=== PATIENT | female | born 2000 | race Caucasian/White ===

== ENCOUNTER 2022-09-25 09:40 | Emergency (ER) | payer OTHER, SELFPAY ==
[2022-09-25 09:51] VITALS: BP 144/84; PULSE 80; RESP 18; TEMP 36.9; O2SAT 99; BMI 24.2
--- NOTE | 2022-09-25 09:56 | ECG_ITS ---
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
--- NOTE | 2022-09-25 10:22 | ED_ITS ---
HPI - Back Pain/Injury General Chief Complaint: Back Pain/Injury Stated Complaint: NAUSEA/WEAKNESS/SEVERE PAIN IN LOWER BACK R SIDE Time Seen by Provider: 09/25/22 09:55 Source: patient Mode of arrival: walk-in History of Present Illness HPI Narrative: The patient is coming to the ER today with multiple complaints most of them were more than a week ago except for the left lower quadrant pain that was there for a few min before arrival and resolved The patient noted the pain in her left leg when she was getting out of the car , that resolved The patient mentioned the other chronic issues including the right lower back pain not radiating associated with no numbness tingling or weakness the pain has been going on for at least a week The patient had not visited her primary care doctor for a while and she denies any difficulty breathing at the moment also denies any chest pain nausea or vomiting at the moment Related Data Previous Rx's Medication Instructions Recorded diclofenac sodium 50 mg 50 mg PO Q12H PRN pain #10 tabs 09/25/22 tablet,delayed release Allergies Allergy/AdvReac Type Severity Reaction Status Date / Time No Known Drug Allergies Allergy Verified 09/25/22 09:49 Review of Systems ROS Status of ROS 10 or more systems reviewed and unremarkable except as noted in history and below Exam Narrative Exam Narrative: Nurses notes and vital signs reviewed and patient is not hypoxic. General: Well-appearing and in no apparent distress. Skin: Warm, dry, no pallor noted. No rash. Head: Normocephalic, atraumatic. Neck: Supple, non-tender. Eye: Pupils are equal, round and EOMI. No scleral icterus. Ears, Nose, Mouth, and Throat: TM are clear, no nasal mucosal hypertrophy. Oral mucosa is moist, no posterior oropharynx erythema, uvula is mid-line Cardiovascular: Regular Rate and Rhythm without murmur, gallop or rub. Respiratory: No accessory muscle use or respiratory distress. Lungs are clear to auscultation, no wheezing, rales or rhonchi Chest Wall: no tenderness Back: No midline thoracic or lumbar vertebral tenderness. No CVA tenderness there is a mild right paraspinal muscle tenderness that is subjective no ecchymosis Musculoskeletal: normal ROM, no calf or popliteal tenderness, no lower extremity edema/swelling GI: Abdomen is soft, non-distended. Normal bowel sounds. No masses appreciated. No tenderness to palpation. No rebound, guarding, or rigidity noted. Neurological: A&O x4. No cranial nerve dysfunction observed. No truncal ataxia. Moves all extremities. Sensation intact. Psychiatric: Cooperative and interactive. Normal mood and affect. Constitutional Vital Signs, click to edit/add: Last Vital Signs Temp 98.5 F 09/25/22 09:51 Pulse 80 09/25/22 09:51 Resp 18 09/25/22 09:51 BP 144/84 H 09/25/22 09:51 Pulse Ox 99 09/25/22 09:51 O2 Del Method Room Air 09/25/22 09:51 Course Vital Signs Vital signs: Vital Signs Temperature 98.5 F 09/25/22 09:51 Pulse Rate 80 09/25/22 09:51 Respiratory Rate 18 09/25/22 09:51 Blood Pressure 144/84 H 09/25/22 09:51 Pulse Oximetry 99 09/25/22 09:51 Oxygen Delivery Method Room Air 09/25/22 09:51 Temperature 98.5 F 09/25/22 09:51 Pulse Rate 80 09/25/22 09:51 Respiratory Rate 18 09/25/22 09:51 Blood Pressure 144/84 H 09/25/22 09:51 Pulse Oximetry 99 09/25/22 09:51 Oxygen Delivery Method Room Air 09/25/22 09:51 MDM - Back Pain/Injury MDM Narrative Medical decision making narrative: EKG showing sinus rhythm with a heart rate of [address] elevation or depression CBC and chemistry shows no acute pathology and the patient test was negative Urinalysis showed some bacteria but the patient does not have any urinary symptoms and her presentation is mostly secondary to musculoskeletal pain Right now the patient was treated in the ER with Toradol discharged home with Brijesh instructed that she needs a primary care doctor for follow-up The patient is to follow up with primary care physician in next 2-3 days or to return to the emergency department should any of the signs or symptoms worsen or new symptoms develop. The patient agrees with the following Diagnosis and Treatment plan and the patient will be discharged home. Lab Data Labs: Lab Results 09/25/22 09/25/22 Range/Units 10:00 10:10 WBC 7.7 (4.0-11.0) 10^3/uL RBC 4.35 (4.20-5.40) 10^6/uL Hgb 13.5 (12.0-16.0) g/dL Hct 39.4 (36.0-48.0) % MCV 90.6 (81.0-99.0) fL MCH 31.0 (26.7-34.0) pg MCHC 34.3 (29.9-35.2) g/dL RDW 12.1 (11.0-15.0) % Plt Count 330 (150-450) 10^3/uL MPV 9.9 (9.5-13.5) fL Neut % (Auto) 63.5 (43.0-75.0) % Lymph % (Auto) 24.4 (20.5-60.0) % Bureau % (Auto) 10.2 (1.7-12.0) % Eos % (Auto) 1.2 (0.9-7.0) % Baso % (Auto) 0.4 (0.2-2.0) % Neut # (Auto) 4.9 (1.4-6.5) 10^3/uL Lymph # (Auto) 1.9 (1.2-3.8) 10^3/uL Bureau # (Auto) 0.8 (0.3-0.8) 10^3/uL Eos # (Auto) 0.1 (0.0-0.7) 10^3/uL Baso # (Auto) 0.0 (0.0-0.1) 10^3/uL Abs Immat Gran (auto) 0.02 (0.00-0.03) 10^3/uL Imm/Tot Granulo (auto) 0.3 (0.0-0.5) % Sodium 137 (136-145) mmol/L Potassium 4.0 (3.5-5.1) mmol/L Chloride 104 (98-107) mmol/L Carbon Dioxide 26.6 (21.0-32.0) mmol/L Anion Gap 10.4 BUN 11.0 (7.0-18.0) mg/dL Creatinine 0.70 (0.55-1.02) mg/dL Est GFR ( Amer) >60 (>=60) Est GFR (Non-Af Amer) >60 (>=60) BUN/Creatinine Ratio 15.7 Glucose 90 (74-106) mg/dL Calcium 9.4 (8.5-10.1) mg/dL Total Bilirubin 0.5 (0.2-1.0) mg/dL AST 13 L (15-37) U/L ALT 19 (14-59) U/L Alkaline Phosphatase 55 (46-116) U/L Troponin I High Sens 5.5 (4.0-51.3) pg/mL Total Protein 7.5 (6.4-8.2) g/dL Albumin 4.1 (3.4-5.0) g/dL Globulin 3.4 g/dL Albumin/Globulin Ratio 1.2 Urine Color Yellow (YELLOW) Urine Clarity Clear (CLEAR) Urine pH 6.5 (5.0-9.0) Ur Specific [place] 1.015 (1.005-1.025) Urine Protein Negative (NEG/TRACE) mg/dL Urine Glucose (UA) Negative (NEGATIVE) mg/dL Urine Ketones Negative (NEGATIVE) mg/dL Urine Occult Blood Negative (NEGATIVE) Urine Nitrite Negative (NEGATIVE) Urine Bilirubin Negative (NEGATIVE) Urine Urobilinogen 1.0 (0.2-1.0) EU/dL Ur Leukocyte Esterase Small A (NEGATIVE) Urine RBC None seen (0-2) #/HPF Urine WBC 2-5 A (NONE SEEN) #/HPF Ur Squamous Epith Cells Many A (NONE/RARE) #/LPF Urine Bacteria Moderate A (NONE SEEN) #/HPF Urine Mucus None seen (NONE SEEN) Ur Culture Indicated? Yes Discharge Plan Discharge Chief Complaint: Back Pain/Injury Clinical Impression: Back pain Patient Disposition: Home, Self-Care Time of Disposition Decision: 11:42 Condition: Good Mode of Transportation: Private Vehicle Prescriptions / Home Meds: New diclofenac sodium 50 mg tablet,delayed release (DR/EC) 50 mg PO Q12H PRN (Reason: pain) Qty: 10 0RF Instructions: Acute Low Back Pain (ED) Stand Alone Forms: Portal Instructions Referrals: Horacio Yang MD [Primary Care Provider] - 1 week Discharge Date/Time: 09/25/22 11:50
[2022-09-25 10:36] LABS: Basophils Percent Auto 0.4 % (0.2-2.0); Eosinophils Absolute Auto 0.1 10^3/uL (0.0-0.7); Eosinophils Percent Auto 1.2 % (0.9-7.0); Hematocrit 39.4 % (36.0-48.0); Hemoglobin 13.5 g/dL (12.0-16.0); Immature Granulocytes Abs Auto 0.02 10^3/uL (0.00-0.03); Immature Granulocytes Pct Auto 0.3 % (0.0-0.5); Lymphocytes Absolute Auto 1.9 10^3/uL (1.2-3.8); Lymphocytes Percent Auto 24.4 % (20.5-60.0); Mean Corpuscular HGB Conc 34.3 g/dL (29.9-35.2); Mean Corpuscular Volume 90.6 fL (81.0-99.0); Mean Platelet Volume 9.9 fL (9.5-13.5); Monocytes Absolute Auto 0.8 10^3/uL (0.3-0.8); Monocytes Percent Auto 10.2 % (1.7-12.0); Neutrophils Absolute Auto 4.9 10^3/uL (1.4-6.5); Neutrophils Percent Auto 63.5 % (43.0-75.0); Platelet Count 330 10^3/uL (150-450); Red Blood Count 4.35 10^6/uL (4.20-5.40); Red Cell Distribution Width 12.1 % (11.0-15.0); White Blood Count 7.7 10^3/uL (4.0-11.0)
[2022-09-25 10:45] LABS: Bilirubin Urine NEGATIVE (NEGATIVE); Blood Urine NEGATIVE (NEGATIVE); Clarity Urine CLEAR (CLEAR); Color Urine YELLOW (YELLOW); Glucose Urine UA NEGATIVE (NEGATIVE); Ketones Urine NEGATIVE (NEGATIVE); Leukocyte Esterase Urine SMALL (NEGATIVE); Nitrite Urine NEGATIVE (NEGATIVE); Protein Urine NEGATIVE (NEG/TRACE); Specific Gravity Urine 1.015 (1.005-1.025); pH Urine 6.5 (5.0-9.0)
[2022-09-25 10:45] LABS: Alanine Aminotransferase 19 U/L (14-59); Albumin Globulin Ratio 1.2; Albumin Level 4.1 g/dL (3.4-5.0); Alkaline Phosphatase 55 U/L (46-116); Anion Gap 10.4; Aspartate Amino Transferase 13 U/L (15-37); BUN Creatinine Ratio 15.7; Bilirubin Total 0.5 mg/dL (0.2-1.0); Calcium 9.4 mg/dL (8.5-10.1); Carbon Dioxide 26.6 mmol/L (21.0-32.0); Chloride 104 mmol/L (98-107); Estimated GFR (African America >60 (>=60); Estimated GFR (Non-African Ame >60 (>=60); Globulin 3.4 g/dL; Glucose 90 mg/dL (74-106); Sodium 137 mmol/L (136-145); Total Protein 7.5 g/dL (6.4-8.2)
[2022-09-25 10:49] LABS: Troponin I High Sensitivity 5.5 pg/mL (4.0-51.3)
[2022-09-25 10:53] LABS: Urine Microscopic Indicated YES
[2022-09-25 11:06] LABS: Bacteria Urine MODERATE #/HPF (NONE SEEN); Mucus Urine NONE SEEN (NONE SEEN); RBC Urine NONE SEEN #/HPF (0-2); Squamous Epithelial Cell Urine MANY #/LPF (NONE/RARE)
[2022-09-25 11:07] LABS: Urine Culture Indicated YES
[2022-09-25 11:23] LABS: HCG Qualitative Urine* NEGATIVE (NEGATIVE)
[2022-09-25] MEDS: KETOROLAC TROMETHAMINE 30 MG/ML VIAL 15 MG IVP (11:39)
[2022-09-25] MEDS: FAMOTIDINE/PF 20 MG/2 ML VIAL IV (11:39)
--- NOTE | 2022-09-29 07:27 | PC.NURSE ---
09/29/22 0727 allison hamilton observed urine c+s on 09/28/22 from 09/25/22. Morena Hilliard RN
== END 2022-09-25 11:50 | disposition home or self-care (01) ==
PROVIDERS: Emergency Provider Emergency Medicine; PCP Family Medicine
DX: M54.50 Low back pain, unspecified (principal)
CPT/HCPCS: 36415; 80053; 81003; 81015; 84484; 84703; 85025; 87086; 87150; 87186; 93005; 96374; 96375; 99285

== ENCOUNTER 2022-10-30 14:05 | Emergency (ER) | payer OTHER, SELFPAY ==
[2022-10-30 14:10] VITALS: BP 148/89; PULSE 82; RESP 16; TEMP 36.7; O2SAT 100; BMI 25.0
--- NOTE | 2022-10-30 14:16 | PC.NURSE ---
Pt states has headache and body aches. States has nause but no vomiting and has been trying to drink fluids.
--- NOTE | 2022-10-30 14:21 | ED.GENADUL1 ---
Documented by User: Bernadette Rene 10/30/22 15:17 HPI - General Adult General Chief complaint: Nausea/Vomiting/Diarrhea Stated complaint: NAUSEOUS/HEADACHE/ACHEY/COLD CHILLS/CONGESTED Time Seen by Provider: 10/30/22 14:16 Source: patient Mode of arrival: walk-in Limitations: no limitations History of Present Illness HPI narrative: 22 year old female presents to the ED for sinus congestion/drainage, cough, body aches, fatigue, nausea, diarrhea. Onset was 3-4 days ago. She had a negative home Covid-19 test last night. Denies fever, chills, SOB, emesis, abd pain, sore throat. Rates her pain 4/10 at this time. Denies chance of . She is declining Covid-19 testing here. Related Data Previous Rx's Medication Instructions Recorded diclofenac sodium 50 mg 50 mg PO Q12H PRN pain #10 tabs 09/25/22 tablet,delayed release benzonatate 100 mg capsule 100 mg PO TID PRN cough #20 caps 10/30/22 guaifenesin 600 mg tablet, 600 mg PO BID PRN congestion, 10/30/22 extended release 12 hr (Mucinex) cough #14 tabs naproxen 500 mg tablet (Naprosyn) 500 mg PO Q12H PRN pain #14 tabs 10/30/22 Allergies Allergy/AdvReac Type Severity Reaction Status Date / Time No Known Drug Allergies Allergy Verified 09/25/22 09:49 Review of Systems ROS Constitutional Denies: fever or chills Ears, nose, mouth, and throat Reports: nasal discharge and nasal congestion; Denies: throat pain, neck pain or throat swelling Cardiovascular Denies: chest pain Respiratory Reports: cough; Denies: shortness of breath Gastrointestinal Reports: nausea and diarrhea; Denies: abdominal pain or vomiting Genitourinary Denies: painful urination Musculoskeletal Reports: back pain and muscle cramps; Denies: muscle weakness Integumentary/Breast Denies: rash Neurological Reports: headache; Denies: dizziness or vertigo Exam Constitutional Vital Signs, click to edit/add: Last Vital Signs Temp 98.1 F 10/30/22 14:10 Pulse 82 10/30/22 14:10 Resp 16 10/30/22 14:10 BP 148/89 H 10/30/22 14:10 Pulse Ox 100 10/30/22 14:10 O2 Del Method Room Air 10/30/22 14:10 Common normals: no apparent distress and oriented x3 General appearance: cooperative; not in distress Orientation/consciousness: Yes awake HENMT Common normals: normocephalic and external ears normal Head and scalp: normal to inspection Face and sinus: normal facial exam and face symmetric Nose: external nose normal and nasal discharge; no epistaxis External ear: external ears normal Mouth: oral and palatal mucosa normal, lip normal and tongue normal Throat: posterior oropharynx normal and uvula midline; no uvular edema Neck & C-Spine Common normals: full ROM and supple Chest Chest: symmetrical chest wall rise Respiratory Common normals: normal respiratory effort, no retractions, no use of accessory muscles and clear to auscultation bilaterally Effort & inspection: able to speak in complete sentences GI Common normals: Normal to inspection, nondistended, normoactive bowel sounds present, soft to palpation and non-tender Extremity Common normals: normal capillary refill Neuro Common normals: oriented x3 Sensorium/orientation: awake and alert Speech: speech normal Gait (neuro): normal gait Course Vital Signs Vital signs: Vital Signs Temperature 98.1 F 10/30/22 14:10 Pulse Rate 82 10/30/22 14:10 Respiratory Rate 16 10/30/22 14:10 Blood Pressure 148/89 H 10/30/22 14:10 Pulse Oximetry 100 10/30/22 14:10 Oxygen Delivery Method Room Air 10/30/22 14:10 Temperature 98.1 F 10/30/22 14:10 Pulse Rate 82 10/30/22 14:10 Respiratory Rate 16 10/30/22 14:10 Blood Pressure 148/89 H 10/30/22 14:10 Pulse Oximetry 100 10/30/22 14:10 Oxygen Delivery Method Room Air 10/30/22 14:10 Medical Decision Making MDM Narrative Medical decision making narrative: She declined testing for Covid-19 here today. Viral illness was discussed with the patient. Prescriptions were provided for mucinex, tessalon perles, and naprosyn. Follow up with pcp for a recheck, further evaluation and treatment. Medical Records Medical records reviewed: Yes I reviewed the patient's medical records Discharge Plan Discharge Chief Complaint: Nausea/Vomiting/Diarrhea Clinical Impression: Viral illness Patient Disposition: Home, Self-Care Time of Disposition Decision: 14:26 Condition: Good Mode of Transportation: Private Vehicle Prescriptions / Home Meds: New guaifenesin [Mucinex] 600 mg tablet extended release 12hr 600 mg PO BID PRN (Reason: congestion, cough) Qty: 14 0RF benzonatate 100 mg capsule 100 mg PO TID PRN (Reason: cough) Qty: 20 0RF naproxen [Naprosyn] 500 mg tablet 500 mg PO Q12H PRN (Reason: pain) Qty: 14 0RF No Action diclofenac sodium 50 mg tablet,delayed release (DR/EC) 50 mg PO Q12H PRN (Reason: pain) Qty: 10 0RF Instructions: Upper Respiratory Infection (ED), Viral Syndrome (ED) Stand Alone Forms: Portal Instructions Referrals: Horacio Yang MD [Primary Care Provider] - 1 week Discharge Date/Time: 10/30/22 14:52 Documented by User: Sravanthi Krause MD 10/30/22 17:01 HPI - General Adult General Chief complaint: Nausea/Vomiting/Diarrhea Stated complaint: NAUSEOUS/HEADACHE/ACHEY/COLD CHILLS/CONGESTED Time Seen by Provider: 10/30/22 14:16 Related Data Previous Rx's Medication Instructions Recorded diclofenac sodium 50 mg 50 mg PO Q12H PRN pain #10 tabs 09/25/22 tablet,delayed release benzonatate 100 mg capsule 100 mg PO TID PRN cough #20 caps 10/30/22 guaifenesin 600 mg tablet, 600 mg PO BID PRN congestion, 10/30/22 extended release 12 hr (Mucinex) cough #14 tabs naproxen 500 mg tablet (Naprosyn) 500 mg PO Q12H PRN pain #14 tabs 10/30/22 Allergies Allergy/AdvReac Type Severity Reaction Status Date / Time No Known Drug Allergies Allergy Verified 09/25/22 09:49 Exam Constitutional Vital Signs, click to edit/add: Last Vital Signs Temp 98.1 F 10/30/22 14:10 Pulse 82 10/30/22 14:10 Resp 16 10/30/22 14:10 BP 148/89 H 10/30/22 14:10 Pulse Ox 100 10/30/22 14:10 O2 Del Method Room Air 10/30/22 14:10 Course Vital Signs Vital signs: Vital Signs Temperature 98.1 F 10/30/22 14:10 Pulse Rate 82 10/30/22 14:10 Respiratory Rate 16 10/30/22 14:10 Blood Pressure 148/89 H 10/30/22 14:10 Pulse Oximetry 100 10/30/22 14:10 Oxygen Delivery Method Room Air 10/30/22 14:10 Temperature 98.1 F 10/30/22 14:10 Pulse Rate 82 10/30/22 14:10 Respiratory Rate 16 10/30/22 14:10 Blood Pressure 148/89 H 10/30/22 14:10 Pulse Oximetry 100 10/30/22 14:10 Oxygen Delivery Method Room Air 10/30/22 14:10 Medical Decision Making MDM Narrative Medical decision making narrative: She declined testing for Covid-19 here today. Viral illness was discussed with the patient. Prescriptions were provided for mucinex, tessalon perles, and naprosyn. Follow up with pcp for a recheck, further evaluation and treatment. Attending physician attestation I have reviewed the mid-level documentation, agree with the documentation, medical decision making and treatment plan as outlined by the mid-level provider. Discharge Plan Discharge Chief Complaint: Nausea/Vomiting/Diarrhea Clinical Impression: Viral illness Patient Disposition: Home, Self-Care Time of Disposition Decision: 14:26 Condition: Good Mode of Transportation: Private Vehicle Prescriptions / Home Meds: New guaifenesin [Mucinex] 600 mg tablet extended release 12hr 600 mg PO BID PRN (Reason: congestion, cough) Qty: 14 0RF benzonatate 100 mg capsule 100 mg PO TID PRN (Reason: cough) Qty: 20 0RF naproxen [Naprosyn] 500 mg tablet 500 mg PO Q12H PRN (Reason: pain) Qty: 14 0RF No Action diclofenac sodium 50 mg tablet,delayed release (DR/EC) 50 mg PO Q12H PRN (Reason: pain) Qty: 10 0RF Instructions: Upper Respiratory Infection (ED), Viral Syndrome (ED) Stand Alone Forms: Portal Instructions Referrals: Horacio Yang MD [Primary Care Provider] - 1 week Discharge Date/Time: 10/30/22 14:52
== END 2022-10-30 14:52 | disposition home or self-care (01) ==
LOC: ER 14:44
PROVIDERS: Emergency Provider Emergency Medicine; PCP Family Medicine
DX: B34.9 Viral infection, unspecified (principal)
CPT/HCPCS: 99283

== ENCOUNTER 2023-02-26 15:06 | Emergency (ER) | payer BC, SELFPAY ==
[2023-02-26 15:17] VITALS: BP 132/84; PULSE 64; RESP 14; TEMP 36.6; O2SAT 98; BMI 25.3
--- NOTE | 2023-02-26 15:38 | ED_ITS ---
HPI - Dental/Oral General Stated complaint: Tooth Pain/Mouth Pain Time Seen by Provider: 02/26/23 15:19 Source: patient Mode of arrival: walk-in Limitations: no limitations History of Present Illness HPI Narrative: 20-year-old female presents for toothache. She's complained of pain to the right lower dentition. She's had it for three days. She has a dentist. No fever or difficulty breathing or swallowing. It's throbbing moderate and continuous. Related Data Home Medications Medication Instructions Recorded Confirmed acetaminophen 300 mg-codeine 30 mg 1 tab PO ONCE 02/26/23 02/26/23 tablet Previous Rx's Medication Instructions Recorded acetaminophen 300 mg-codeine 30 mg 1 tab PO Q6H PRN pain 5 days #20 02/26/23 tablet tabs ibuprofen 800 mg tablet 800 mg PO Q8H PRN pain #20 tabs 02/26/23 penicillin V potassium 250 mg 250 mg PO QID 10 days #40 tabs 02/26/23 tablet Allergies Allergy/AdvReac Type Severity Reaction Status Date / Time No Known Drug Allergies Allergy Verified 02/26/23 15:15 Review of Systems ROS Narrative A ten point review of systems is negative except as noted above. PFSH PFSH Social History Smoking status: Current every day smoker Exam Narrative Exam Narrative: Nurses note and vital signs reviewed and patient is not hypoxic. General: The patient appears well and in no apparent distress. Patient is resting comfortably on cart. Skin: Warm, dry, no pallor noted. There is no rash noted. Head: Normocephalic, atraumatic Eye: Normal conjunctiva, no drainage Ears, Nose, Mouth, and Throat: oral mucosa is moist. Nares patent. no facial swelling or erythema. No bleeding or pus in her mouth. No gingival swelling or erythema. No swelling to the floor of her mouth and she is handling her oral sec retions well. Cardiovascular: Regular Rate and Rhythm Respiratory: Patient is in no distress, no accessory muscle use, lungs are clear to auscultation, no wheezing, rales or rhonchi Back: non-tender GI: Normal bowel sounds, no tenderness to palpation, no masses appreciated. No rebound, guarding, or rigidity noted. Musculoskeletal: The patient has no evidence of calf tenderness, no pitting lisa ma, symmetrical pulses noted bilaterally Neurological: A&O, normal speech Psychiatric: Cooperative Constitutional Vital Signs, click to edit/add: Last Vital Signs Temp 98 F 02/26/23 15:17 Pulse 64 02/26/23 15:17 Resp 14 02/26/23 15:17 BP 132/84 02/26/23 15:17 Pulse Ox 98 02/26/23 15:17 O2 Del Method Room Air 02/26/23 15:17 Course Vital Signs Vital signs: Vital Signs Temperature 98 F 02/26/23 15:17 Pulse Rate 64 02/26/23 15:17 Respiratory Rate 14 02/26/23 15:17 Blood Pressure 132/84 02/26/23 15:17 Pulse Oximetry 98 02/26/23 15:17 Oxygen Delivery Method Room Air 02/26/23 15:17 Temperature 98 F 02/26/23 15:17 Pulse Rate 64 02/26/23 15:17 Respiratory Rate 14 02/26/23 15:17 Blood Pressure 132/84 02/26/23 15:17 Pulse Oximetry 98 02/26/23 15:17 Oxygen Delivery Method Room Air 02/26/23 15:17 MDM - Dental/Oral MDM Narrative Medical decision making narrative: she is prescribed pain medicine and antibiotic and she'll follow-up with her dentist. Treatment diagnosis and follow-up were discussed with the patient. Discharge Plan Discharge Clinical Impression: Toothache Patient Disposition: Home, Self-Care Time of Disposition Decision: 15:35 Condition: Good Mode of Transportation: Private Vehicle Prescriptions / Home Meds: New acetaminophen-codeine 300-30 mg tablet 1 tab PO Q6H PRN (Reason: pain) 5 Days Qty: 20 0RF penicillin V potassium 250 mg tablet 250 mg PO QID 10 Days Qty: 40 0RF ibuprofen 800 mg tablet 800 mg PO Q8H PRN (Reason: pain) Qty: 20 0RF No Action acetaminophen-codeine 300-30 mg tablet 1 tab PO ONCE Instructions: Toothache (ED) Additional Instructions: follow-up with your dentist Stand Alone Forms: Portal Instructions Referrals: Horacio Yang MD [Primary Care Provider] - 1 week
[2023-02-26] MEDS: IBUPROFEN 400 MG TABLET 800 MG PO (15:56)
[2023-02-26] MEDS: PENICILLIN V POTASSIUM 250 MG TABLET PO (15:57)
== END 2023-02-26 16:00 | disposition home or self-care (01) ==
PROVIDERS: Emergency Provider Emergency Medicine; PCP Family Medicine
DX: K08.89 Other specified disorders of teeth and supporting structures (principal); F17.210 Nicotine dependence, cigarettes, uncomplicated
CPT/HCPCS: 99283

== ENCOUNTER 2023-04-24 07:49 | Emergency (ER) | payer BC, SELFPAY ==
[2023-04-24 07:52] VITALS: BP 127/62; PULSE 89; RESP 18; O2SAT 100; BMI 29.5
--- NOTE | 2023-04-24 07:59 | ED_ITS ---
HPI - Female Genitourinary General Chief complaint: Urogenital-Female Stated complaint: BLOOD IN URINE, FLANK PAIN- RIGHT SIDE Time Seen by Provider: 04/24/23 07:59 Source: patient Mode of arrival: walk-in Limitations: no limitations History of Present Illness HPI Narrative: This patient is here complaining of frequency of urination. She has very mild discomfort in the right flank area but she has got a lot of pressure and fullness in the suprapubic area. She has not had any recent infections but she did when she was much younger. She has not taken any antibiotics. She has chills last night but no vomiting or documented fever. She also started noticing some blood in her urine today. She has not had previous history of kidney stones. She has not had a family history of kidney stones. She is on medications for ADHD but no other medications. She has symptoms now of frequency urgency hematuria. Related Data Home Medications Medication Instructions Recorded Confirmed acetaminophen 300 mg-codeine 30 mg 1 tab PO ONCE 02/26/23 02/26/23 tablet atomoxetine 40 mg capsule 40 mg PO DAILY 04/24/23 04/24/23 buspirone 10 mg tablet 10 mg PO BID 04/24/23 04/24/23 Previous Rx's Medication Instructions Recorded acetaminophen 300 mg-codeine 30 mg 1 tab PO Q6H PRN pain 5 days #20 02/26/23 tablet tabs ibuprofen 800 mg tablet 800 mg PO Q8H PRN pain #20 tabs 02/26/23 penicillin V potassium 250 mg 250 mg PO QID 10 days #40 tabs 02/26/23 tablet Allergies Allergy/AdvReac Type Severity Reaction Status Date / Time No Known Drug Allergies Allergy Verified 02/26/23 15:15 PFSH PFSH Social History Smoking status: Current every day smoker Exam Narrative Exam Narrative: Awake alert pleasant does not appear ill , vital signs are stable. Skin is warm and dry mucous membranes are moist and pink she does not appear ill or toxic there is good tissue perfusion. Examination abdomen there is no guarding rebound rigidity or peritoneal findings. Minimal discomfort in the suprapubic area. No tenderness at McBurney's point. Very slight tenderness to percussion over the right flank area. No respiratory distress. Constitutional Vital Signs, click to edit/add: Last Vital Signs Pulse 89 04/24/23 07:52 Resp 18 04/24/23 07:52 BP 127/62 04/24/23 07:52 Pulse Ox 100 04/24/23 07:52 O2 Del Method Room Air 04/24/23 07:52 Course Vital Signs Vital signs: Vital Signs Pulse Rate 89 04/24/23 07:52 Respiratory Rate 18 04/24/23 07:52 Blood Pressure 127/62 04/24/23 07:52 Pulse Oximetry 100 04/24/23 07:52 Oxygen Delivery Method Room Air 04/24/23 07:52 Pulse Rate 89 04/24/23 07:52 Respiratory Rate 18 04/24/23 07:52 Blood Pressure 127/62 04/24/23 07:52 Pulse Oximetry 100 04/24/23 07:52 Oxygen Delivery Method Room Air 04/24/23 07:52 MDM - Female Genitourinary MDM Narrative Medical decision making narrative: This patient presents with hematuria with classic urinary infection type symptomatology. Urinalysis consistent with the same. I believe is much less likelihood of having nephrolithiasis. We will initiate treatment including anti biotics plenty of p.o. fluids and following up with her primary care doctor Discharge Plan Discharge Chief Complaint: Urogenital-Female Clinical Impression: Urinary tract infection Patient Disposition: Home, Self-Care Time of Disposition Decision: 08:52 Prescriptions / Home Meds: No Action acetaminophen-codeine 300-30 mg tablet 1 tab PO ONCE acetaminophen-codeine 300-30 mg tablet 1 tab PO Q6H PRN (Reason: pain) 5 Days Qty: 20 0RF penicillin V potassium 250 mg tablet 250 mg PO QID 10 Days Qty: 40 0RF ibuprofen 800 mg tablet 800 mg PO Q8H PRN (Reason: pain) Qty: 20 0RF buspirone 10 mg tablet 10 mg PO BID atomoxetine 40 mg capsule 40 mg PO DAILY Additional Instructions: Drink plenty of extra fluids, you should recheck the urine with your primary care doctor to make sure the infection is cleared up, antibiotics for 7 days Stand Alone Forms: Portal Instructions Referrals: Horacio Yang MD [Primary Care Provider] - 1 week
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
[2023-04-24 08:22] LABS: Bilirubin Urine MODERATE (NEGATIVE); Blood Urine LARGE (NEGATIVE); Clarity Urine CLOUDY (CLEAR); Color Urine DK. YELLOW (YELLOW); Glucose Urine UA NEGATIVE (NEGATIVE); Ketones Urine TRACE mg/dL (NEGATIVE); Leukocyte Esterase Urine MODERATE (NEGATIVE); Nitrite Urine POSITIVE (NEGATIVE); Protein Urine >=300 mg/dL (NEG/TRACE); Specific Gravity Urine >=1.030 (1.005-1.025); pH Urine 6.5 (5.0-9.0)
[2023-04-24 08:28] LABS: HCG Qualitative Urine* NEGATIVE (NEGATIVE); Urine Microscopic Indicated YES
[2023-04-24 08:33] LABS: Bacteria Urine SMALL #/HPF (NONE SEEN); Cast Seen? NONE SEEN #/LPF (NONE SEEN); Crystals Seen? None Seen #/HPF (None Seen); Mucus Urine NONE SEEN (NONE SEEN); RBC Urine >100 #/HPF (0-2); Squamous Epithelial Cell Urine RARE #/LPF (NONE/RARE); Urine Culture Indicated YES; WBC Urine 20-50 #/HPF (NONE SEEN)
== END 2023-04-24 08:58 | disposition home or self-care (01) ==
PROVIDERS: Emergency Provider Emergency Medicine Emergency Medical Services; PCP Family Medicine
DX: N39.0 Urinary tract infection, site not specified (principal); F90.9 Attention-deficit hyperactivity disorder, unspecified type; Z79.899 Other long term (current) drug therapy; F17.210 Nicotine dependence, cigarettes, uncomplicated
CPT/HCPCS: 81001; 84703; 87086; 99283

== ENCOUNTER 2023-04-25 11:48 | Outpatient (OUT) | payer BC, SELFPAY ==
--- OUTSIDE RECORDS SUMMARY | 2023-04-25 12:02 | XMS_ITS | CCD ---
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 Jerry Vázquez CBC AUTO DIFFon 06-30-2022 BASO # 0.0 103/ul Normal 0.0-0.1 [facility] Comment on above: Performed By: #### C BC #### [facility] [address] [place] [address] Dr. Jerry Vázquez Basophils/100 WBC (Bld) 0.7 % Normal 0.2-2.0 [facility] Comment on above: Performed By: #### C BC #### [facility] [address] [place] [address] Dr. Jerry Vázquez EO # 0.1 103/ul Normal 0.0-0.7 [facility] Comment on above: Performed By: #### C BC #### [facility] [address] [place] [address] Dr. Jerry Vázquez Eosinophils/100 WBC (Bld) 2.2 % Normal 0.9-7.0 [facility] Comment on above: Performed By: #### C BC #### [facility] [address] [place] [address] Dr. Jerry Vázquez Erythrocyte distribution width (RBC) [Ratio] 11.9 % Normal 11.0-15.0 [facility] Comment on above: Performed By: #### C BC #### [facility] [address] [place] [address] Dr. Jerry Vázquez Hematocrit (Bld) [Volume fraction] 41.4 % Normal 36.0-48.0 [facility] Comment on above: Performed By: #### C BC #### [facility] [address] [place] [address] Dr. Jerry Vázquez Hemoglobin (Bld) [Mass/Vol] 13.9 g/dL Normal 12.0-16.0 [facility] Comment on above: Performed By: #### C BC #### [facility] [address] [place] [address] Dr. Jerry Vázquez IG # 0.01 10e3/ul Normal 0.00-0.03 [facility] Comment on above: Performed By: #### C BC #### [facility] [address] [place] [address] Dr. Jerry Vázquez IG % 0.2 % Normal 0.0-0.5 [facility] Comment on above: Performed By: #### C BC #### [facility] [address] [place] [address] Dr. Jerry Vázquez LYMPH # 2.3 103/ul Normal 1.2-3.8 [facility] Comment on above: Performed By: #### C BC #### [facility] [address] [place] [address] Dr. Jerry Vázquez Lymphocytes/100 WBC (Bld) 37.4 % Normal 20.5-60.0 [facility] Comment on above: Performed By: #### C BC #### [facility] [address] [place] [address] Dr. Jerry Vázquez MANUAL DIFF REQ NO Normal [facility] Comment on above: Performed By: #### C BC #### [facility] [address] [place] [address] Dr. Jerry Vázquez MCH (RBC) [Entitic mass] 31.4 pg Normal 26.7-34.0 [facility] Comment on above: Performed By: #### C BC #### [facility] [address] [place] [address] Dr. Jerry Vázquez MCHC (RBC) [Mass/Vol] 33.6 g/dL Normal 29.9-35.2 [facility] Comment on above: Performed By: #### C BC #### [facility] [address] [place] [address] Dr. Jerry Vázquez MCV (RBC) [Entitic vol] 93.7 fL Normal 81.0-99.0 [facility] Comment on above: Performed By: #### C BC #### [facility] [address] [place] [address] Dr. Jerry Vázquez MONO # 0.6 103/ul Normal 0.3-0.8 [facility] Comment on above: Performed By: #### C BC #### [facility] [address] [place] [address] Dr. Jerry Vázquez Monocytes/100 WBC (Bld) 10.6 % Normal 1.7-12.0 [facility] Comment on above: Performed By: #### C BC #### [facility] [address] [place] [address] Dr. Jerry Vázquez NEUT # 2.9 103/ul Normal 1.4-6.5 [facility] Comment on above: Performed By: #### C BC #### [facility] [address] [place] [address] Dr. Jerry Vázquez Neutrophils/100 WBC (Bld) 48.9 % Normal 43.0-75.0 [facility] Comment on above: Performed By: #### C BC #### [facility] [address] [place] [address] Dr. Jerry Vázquez Platelet mean volume (Bld) [Entitic vol] 9.6 fL Normal 9.5-13.5 [facility] Comment on above: Performed By: #### C BC #### [facility] [address] [place] [address] Dr. Jerry Vázquez PLT 345 103/ul Normal 150-450 [facility] Comment on above: Performed By: #### C BC #### [facility] [address] [place] [address] Dr. Jerry Vázquez RBC 4.42 106/ul Normal 4.20-5.40 [facility] Comment on above: Performed By: #### C BC #### [facility] [address] [place] [address] Dr. Jerry Vázquez WBC 6.0 103/ul Normal 4.0-11.0 [facility] Comment on above: Performed By: #### C BC #### [facility] [address] [place] [address] Dr. Jerry Vázquez FREE THYROXINE INDEX T7on FTI 2.52 Normal 1.30-4.50 [facility] Comment on above: Performed By: #### T SH, LIPID, T7, CMP #### [facility] [address] [address] [address] Jerry Vázquez T3U 36.0 % Normal 30.0-39.0 [facility] Comment on above: Performed By: #### T SH, LIPID, T7, CMP #### [facility] [address] [address] [address] Jerry Vázquez T4 [Mass/Vol] 7.00 ug/dL Normal 4.80-13.90 [facility] Comment on above: Performed By: #### T SH, LIPID, T7, CMP #### [facility] [address] [address] [address] Jerry Vázquez GLYCOHEMOGLOBIN A1Con 2022 ADA RECOMMENDATION SEE BELOW Normal [facility] Comment on above: Result Comment: ADA RECOMMENDED LIMIT 4.0 - 6.0 ADA THERAPEUTIC TARGET < 7.0 ACTION SUGGESTED > 7.0 Performed By: #### G RASTCX #### [facility] [address] [address] [address] Jerry Vázquez Glucose [Mass/Vol] 88 mg/dL Normal [facility] Comment on above: Performed By: #### G RASTCX #### [facility] [address] [address] [address] Jerry Vázquez HbA1c (Bld) [Mass fraction] 4.7 % Normal 4.5-6.2 [facility] Comment on above: Performed By: #### G RASTCX #### [facility] [address] [address] [address] Jerry Vázquez IRONon 06-30-2022 Iron [Mass/Vol] 123.0 ug/dL Normal 50.0-170.0 [facility] Comment on above: Performed By: #### REMEDIOS DIALLO #### [facility] [address] [address] [address] Jerry Vázquez LIPID PROFILEon 06-30-2022 CHOL-HDL RATIO NORM SEE BELOW Normal [facility] Comment on above: Result Comment: 3.3 - 4.4 LOW RISK 4.4 - 7.1 AVERAGE RISK 7.1 - 11.0 MODERATE RISK >11.0 HIGH RISK Performed By: #### G RASTCX #### [facility] [address] [address] [address] Jerry Vázquez Cholesterol [Mass/Vol] 133 mg/dL Normal <=200 [facility] Comment on above: Performed By: #### G RASTCX #### [facility] [address] [address] [address] Jerry Vázquez Cholesterol in HDL [Mass/Vol] 58 mg/dL Normal 40-60 [facility] Comment on above: Performed By: #### G RASTCX #### [facility] [address] [place] [address] Dr. Jerry Vázquez Cholesterol in LDL [Mass/Vol] 68.2 mg/dL Normal [facility] Comment on above: Performed By: #### G RASTCX #### [facility] [address] [place] [address] Dr. Jerry Vázquez Cholesterol.total/Ch olesterol in HDL [Mass ratio] 2.3 {ratio} Normal [facility] Comment on above: Performed By: #### G RASTCX #### [facility] [address] [place] [address] Dr. Jerry Vázquez HDL NORMAL > or = 60 mg/dl - LOW CARDIOVASCULAR RISK <40 mg/dl - HIGH CARDIOVASCULAR RISK Normal [facility] Comment on above: Performed By: #### G RASTCX #### [facility] [address] [place] [address] Dr. Jerry Vázquez LDL CALC NORMAL SEE BELOW Normal [facility] Comment on above: Result Comment: <100 mg/dl OPTIMAL 100 - 129 mg/dl NEAR OR ABOVE OPTIMAL 130 - 159 mg/dl BORDERLINE HIGH 160 - 189 mg/dl HIGH >190 mg/dl VERY HIGH Performed By: #### G RASTCX #### [facility] [address] [place] [address] Dr. Jerry Vázquez Triglyceride [Mass/Vol] 34 mg/dL Normal <=150 [facility] Comment on above: Performed By: #### G RASTCX #### [facility] [address] [address] [address] Jerry Vázquez VLDL CALC 6.8 mg/dL Normal [facility] Comment on above: Performed By: #### G RASTCX #### [facility] [address] [address] [address] Jerry Vázquez PROF 14(COMP METB)on 023 Albumin [Mass/Vol] 3.8 g/dL Normal 3.4-5.0 [facility] Comment on above: Performed By: #### G RASTCX #### [facility] [address] [address] [address] Jerry Vázquez Albumin/Globulin [Mass ratio] 1.1 {ratio} Normal [facility] Comment on above: Performed By: #### G RASTCX #### [facility] [address] [place] [address] Dr. Jerry Vázquez ALP [Catalytic activity/Vol] 57 U/L Normal 46-116 [facility] Comment on above: Performed By: #### G RASTCX #### [facility] [address] [address] [address] Jerry Vázquez ALT [Catalytic activity/Vol] 22 U/L Normal 14-59 [facility] Comment on above: Performed By: #### G RASTCX #### [facility] [address] [address] [address] Jerry Vázquez Anion gap [Moles/Vol] 11.1 mmol/L Normal [facility] Comment on above: Performed By: #### G RASTCX #### [facility] [address] [address] [address] Jerry Vázquez AST [Catalytic activity/Vol] 12 U/L Critically low 15-37 [facility] Comment on above: Performed By: #### G RASTCX #### [facility] [address] [address] [address] Jerry Vázquez Bilirubin [Mass/Vol] 0.7 mg/dL Normal 0.2-1.0 [facility] Comment on above: Performed By: #### G RASTCX #### [facility] [address] [address] [address] Jerry Vázquez Calcium [Mass/Vol] 9.1 mg/dL Normal 8.5-10.1 [facility] Comment on above: Performed By: #### G RASTCX #### [facility] [address] [address] [address] Jerry Vázquez Chloride [Moles/Vol] 106 mmol/L Normal 98-107 [facility] Comment on above: Performed By: #### G RASTCX #### [facility] [address] [address] [address] Jerry Vázquez CO2 [Moles/Vol] 28.7 mmol/L Normal 21.0-32.0 [facility] Comment on above: Performed By: #### G RASTCX #### [facility] [address] [address] [address] Jerry Vázquez Creatinine [Mass/Vol] 0.84 mg/dL Normal 0.55-1.02 [facility] Comment on above: Performed By: #### G RASTCX #### [facility] [address] [address] [address] Jerry Vázquez EGFR-AF BELIZEAN >60 Normal >=60 [facility] Comment on above: Performed By: #### G RASTCX #### [facility] [address] [address] [address] Jerry Vázquez EGFR-NON AF BELIZEAN >60 Normal >=60 [facility] Comment on above: Performed By: #### G RASTCX #### [facility] [address] [address] [address] Jerry Vázquez Globulin (S) [Mass/Vol] 3.5 g/dL Normal [facility] Comment on above: Performed By: #### G RASTCX #### [facility] [address] [address] [address] Jerry Vázquez Glucose [Mass/Vol] 85 mg/dL Normal 74-106 [facility] Comment on above: Performed By: #### G RASTCX #### [facility] [address] [address] [address] Jerry Vázquez Potassium [Moles/Vol] 3.8 mmol/L Normal 3.5-5.1 [facility] Comment on above: Performed By: #### G RASTCX #### [facility] [address] [place] [address] Dr. Jerry Vázquez Protein [Mass/Vol] 7.3 g/dL Normal 6.4-8.2 [facility] Comment on above: Performed By: #### G RASTCX #### [facility] [address] [address] [address] Jerry Vázquez Sodium [Moles/Vol] 142 mmol/L Normal 136-145 [facility] Comment on above: Performed By: #### G RASTCX #### [facility] [address] [place] [address] Dr. Jerry Vázquez Urea nitrogen [Mass/Vol] 9.0 mg/dL Normal 7.0-18.0 [facility] Comment on above: Performed By: #### G RASTCX #### [facility] [address] [place] [address] Dr. Jerry Vázquez Urea nitrogen/Creatinine [Mass ratio] 10.7 mg/mg Normal [facility] Comment on above: Performed By: #### G RASTCX #### [facility] [address] [place] [address] Dr. Jerry Vázquez TSHon 06-30-2022 TSH 2.040 uIU/mL Normal 0.358-3.740 [facility] Comment on above: Performed By: #### G RASTCX #### [facility] [address] [place] [address] Dr. Jerry Vázquez VITAMIN D 25 OHon 06-30-2022 VIT D 25-OH 14.0 ng/mL Normal [facility] Comment on above: Performed By: #### I DONTE, VITAD #### [facility] [address] [place] [address] Dr. Jerry Vázquez VIT D RANGES SEE BELOW Normal [facility] Comment on above: Result Comment: <20 ng/mL Vit D deficient 20 - <30 ng/mL Vit D insufficient 30 - 100 ng/mL Vit D sufficient >100 ng/mL Potential Toxicity Performed By: #### I DONTE VITIVIS #### [facility] [address] [place] [address] Dr. Jerry Vázquez XR CHEST 2 Von [...] ELLIOTT LAZO Date: 2022-02-10 14:20 Normal [facility] XR TSPINE 2 VIEWSon 02-11-20 XR [...] ELLIOTT LAZO Date: 2022-02-10 14:22 Normal [facility]on SARS-CoV-2 (COVID-19) RNA NICOLAS+probe Ql (Unsp spec) Not detected Normal NOT DETECTED [facility] Comment on above: Result Comment: When [...] for this test is supported by the Program Director [employer] of Health and Human Service's declaration that [...] used). Performed By: #### C VDTBH #### [facility] [address] [place] [address] Dr. Jerry Vázquez GROUP A STREP CULTUREon S. pyogenes Ag Ql (Unsp spec) Culture Observations: NEGATIVE FOR GROUP A STREPTOCOCCUS. Normal [facility] Comment on above: Performed By: #### G RASTCX #### [facility] [address] [place] [address] Dr. Jerry Vázquez INFLUENZA A AND B AGon 01-08 [facility] SEE BELOW Normal [facility] Comment on above: Result Comment: Nega tive for Flu A protein angiten. Infection due to Flu A cannot be ruled out. Flu A angiten in the sample may be below the detection limit of the test. Performed By: #### I NFLUAB #### [facility] [address] [place] [address] Dr. Jerry Vázquez INFLUBNEG SEE BELOW Normal [facility] Comment on above: Result Comment: Nega tive for Flu B protein antigen. Infection due to Flu B cannot be ruled out. Flu B antigen in the sample may be below the detection limit of the test. Performed By: #### I NFLUAB #### [facility] [address] [place] [address] Dr. Jerry Vázquez INFLUENZA A AG Negative Normal NEGATIVE SEE COMMENT [facility] Comment on above: Performed By: #### I NFLUAB #### [facility] [address] [place] [address] Dr. Jerry Vázquez INFLUENZA B AG Negative Normal NEGATIVE SEE COMMENT [facility] Comment on above: Performed By: #### I NFLUAB #### [facility] [address] [place] [address] Dr. Jerry Vázquez INTERNAL CONTROLS Within Normal Limits Normal Wi thin Normal Limits [facility] Comment on above: Performed By: #### I NFLUAB #### [facility] [address] [place], [place] [address] Dr. Jerry Vázquez MONOon 01-08-2022 Monocytes (Bld) [#/Vol] Negative Normal NEGATIVE [facility] Comment on above: Performed By: #### G RASTCX #### [facility] [address] [place], [place] [address] Dr. Jerry Vázquez STREPT SCREENon 01-08-2022 STREP SCREEN A Negative Normal NEGATIVE [facility] Comment on above: Performed By: #### S SCRN #### [facility] [address] [place], [place] [address] Dr. Jerry Vázquez Urea/Mycoplasma hominis Cult on 05-18-2021 Mycoplasma hominis Negative Normal Negative [facility] Comment on above: Order Comment: Reaso n for Exam Pelvic pain;Vaginal pain;Leukorrhea Reason for Exam Pelvic pain;Vaginal pain Result Comment: Perf ormed at: - [facility] [address] [id number] Research Hydraulic Engineer: Jama Blancas MD, Phone: [phone] PERFORMED BY: [facility] [address] [place] [address] PATHOLOGIST CHAIR CANER JACE BONILLA M.D. Performed By: #### V AGINITIS, UREA MYCO HOMIN #### [facility] , Ureaplasma Urelyticum Negative Normal Negative [facility] Comment on above: Order Comment: Reaso n for Exam Pelvic pain;Vaginal pain;Leukorrhea Reason for Exam Pelvic pain;Vaginal pain Performed By: #### V AGINITIS, UREA MYCO HOMIN #### [facility] , Vaginitis (VG)on 05-18-2021 Atopobium Vaginae Low - 0 Normal . [facility] Comment on above: Order Comment: Reaso n for Exam Pelvic pain;Vaginal pain;Leukorrhea Reason for Exam Pelvic pain;Vaginal pain Performed By: #### V AGINITIS, UREA MYCO HOMIN #### [facility] , BVAB2 Low - 0 Normal . [facility] Comment on above: Order Comment: Reaso n for Exam Pelvic pain;Vaginal pain;Leukorrhea Reason for Exam Pelvic pain;Vaginal pain Performed By: #### V AGINITIS, UREA MYCO HOMIN #### [facility] , Tracee Albicans, NICOLAS Negative Normal Negative [facility] Comment on above: Order Comment: Reaso n for Exam Pelvic pain;Vaginal pain;Leukorrhea Reason for Exam Pelvic pain;Vaginal pain Result Comment: This test was developed and its performance characteristics determined by [facility]. It has not been cleared or approved by the Food and Drug Administration. Performed By: #### V AGINITIS, UREA MYCO HOMIN #### [facility] , Tracee Glabrata, NICOLAS Negative Normal Negative [facility] Comment on above: Order Comment: Reaso n for Exam Pelvic pain;Vaginal pain;Leukorrhea Reason for Exam Pelvic pain;Vaginal pain Result Comment: This test was developed and its performance characteristics determined by [facility]. It has not been cleared or approved by the Food and Drug Administration. Performed By: #### V AGINITIS, UREA MYCO HOMIN #### [facility] , Megasphaera High - 2 Critically abnormal . [facility] Comment on above: Order Comment: Reaso n [...] , Tric Vag NICOLAS Negative Normal Negative [facility] Comment on above: Order Comment: Reaso n for Exam Pelvic pain;Vaginal pain;Leukorrhea Reason for Exam Pelvic pain;Vaginal pain Result Comment: Perf ormed at: =G - [facility] [address] [place] [id number] Research Hydraulic Engineer: Jacinta Franklin MD, Phone: [phone] Performed By: #### V SARAH BLACKWELL #### [facility] , Encounters Encounter Date Encounter Type Care Provider Facility Start: 06-30-2022 End: 07-01-[address] KAYLAH RENE . Facility:[facility] Start: 02-10-2022 End: 02-10-[address] KAYLAH RENE . Facility:[facility] Start: 01-08-2022 End: 01-08-[address] KAYLAH RENE . Facility:[facility] Start: 03-02-2017 End: 03-02-2017 ambulatory Amando HERRERA Facility:[facility] Payers Date Payer Category Payer Unknown [id number] 2000 Unknown [id number] 2.16.84 [id number] 2000 Unknown [id number] 2.16.84 [id number] 2000 Unknown [id number] 2.16.84 [id number] 1983 Unknown [id number] 2.16.84 [id number] 1959 Unknown [id number] 1959 Unknown [id number] 1959 Unknown [id number] Summary Purpose Family History No Family History Records FoundNo Family History Records FoundNo Family History Records Found Advance Directives No Advanced Directives Records FoundNo Advanced Directives Records FoundNo Advanced Directives Records Found Additional Source Comments INFORMATION SOURCE (unrecogn ized section and content) DATE CREATED AUTHOR 05/27/2021 [facility] DATE CREATED AUTHOR AUTHOR'S ORGANIZ ATION 07/08/2022 [facility] DATE CREATED AUTHOR AUTHOR'S ORGANIZ ATION 08/13/2022 [facility] FOR RECORDS PERTAINING TO PATIENTS WHO [...] BE BASED ON THE PRIMARY CLINICAL RECORDS. [facility] [employer] [facility]. provides no warranty or guarantee of the accuracy or completeness of information in this document.
[2023-04-25 12:23] LABS: Basophils Percent Auto 0.3 % (0.2-2.0); Eosinophils Absolute Auto 0.1 10^3/uL (0.0-0.7); Eosinophils Percent Auto 0.7 % (0.9-7.0); Hemoglobin 13.2 g/dL (12.0-16.0); Immature Granulocytes Abs Auto 0.03 10^3/uL (0.00-0.03); Immature Granulocytes Pct Auto 0.3 % (0.0-0.5); Lymphocytes Absolute Auto 1.8 10^3/uL (1.2-3.8); Lymphocytes Percent Auto 14.7 % (20.5-60.0); Mean Corpuscular HGB Conc 32.2 g/dL (29.9-35.2); Mean Corpuscular Hemoglobin 30.8 pg (26.7-34.0); Mean Corpuscular Volume 95.8 fL (81.0-99.0); Mean Platelet Volume 9.8 fL (9.5-13.5); Monocytes Absolute Auto 0.9 10^3/uL (0.3-0.8); Monocytes Percent Auto 7.6 % (1.7-12.0); Neutrophils Absolute Auto 9.2 10^3/uL (1.4-6.5); Neutrophils Percent Auto 76.4 % (43.0-75.0); Platelet Count 295 10^3/uL (150-450); Red Blood Count 4.28 10^6/uL (4.20-5.40); Red Cell Distribution Width 12.3 % (11.0-15.0)
[2023-04-25 12:44] LABS: Alanine Aminotransferase 16 U/L (14-59); Albumin Globulin Ratio 0.9; Albumin Level 3.5 g/dL (3.4-5.0); Alkaline Phosphatase 66 U/L (46-116); Anion Gap 11.1; Aspartate Amino Transferase 10 U/L (15-37); Bilirubin Total 0.4 mg/dL (0.2-1.0); Carbon Dioxide 28.6 mmol/L (21.0-32.0); Chloride 104 mmol/L (98-107); Estimated GFR (African America >60 (>=60); Estimated GFR (Non-African Ame >60 (>=60); Globulin 3.7 g/dL; Glucose 87 mg/dL (74-106); Potassium 3.7 mmol/L (3.5-5.1); Sodium 140 mmol/L (136-145); Total Protein 7.2 g/dL (6.4-8.2)
[2023-04-25 13:51] LABS: Mono Screen NEGATIVE (NEGATIVE)
== END 2023-04-25 11:49 | disposition home or self-care (01) ==
LOC: LAB 11:49
PROVIDERS: PCP Family Medicine; Visit Provider Family Medicine
DX: I88.9 Nonspecific lymphadenitis, unspecified (principal)
CPT/HCPCS: 36415; 80053; 85025; 86308

== ENCOUNTER 2023-11-08 20:27 | Emergency (ER) | payer BC, OTHER, SELFPAY ==
[2023-11-08 20:46] VITALS: BP 129/72; PULSE 80; TEMP 36.8; O2SAT 100; BMI 25.7
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
== END 2023-11-08 22:42 | disposition left against medical advice (07) ==
PROVIDERS: Emergency Provider Internal Medicine; PCP Family Medicine
DX: Z53.21 Procedure and treatment not carried out due to patient leaving prior to being seen by health care provider (principal)
CPT/HCPCS: 99281

== ENCOUNTER 2024-08-27 09:44 | Outpatient (OUT) | payer OTHER, MEDICAID, SELFPAY ==
--- OUTSIDE RECORDS SUMMARY | 2024-08-27 09:58 | XMS_ITS | CCD ---
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 Available Start: 06-30-2022 End: 07-01-[address] KAYLAH YANG . Facility:[facility] Start: 02-10-2022 End: 02-10-[address] KAYLAH YANG . Facility:[facility] Start: 01-08-2022 End: 01-08-[address] KAYLAH YANG . Facility:[facility] Start: 03-02-2017 End: 03-02-2017 ambulatory Amando HERRERA Facility:[facility] Procedures Date Procedure Procedure Detail Performing Clinician Start: 06-26-2024 PATHOLOGY REPORT Nilam Phillips MD Work Phone: Start: 06-26-2024 Urine test visual color cmprsn meths Nilam Phillips MD Work Phone: Start: 06-16-2024 Ultrasonography of l eft breast Kaylah Yang MD Work Phone: Start: 11-20-2023 CRYOTHERAPY SKIN LESION Karen Raman PHONE TECHNICIAN-TECHNICAL FELLOW Work Phone: Plan of Treatment Date Care Activity Detail Author Start: 12-17-2024 End: 12-17-2024 Patient encounter procedure 12/17/2024 3:30 PM EDT Office Visit [facility] [address] [place] [phone] Nilam Phillips MD [address] [place] [address] [facility] Start: 01-21-2024 End: 01-21-2024 Patient encounter procedure 01/21/2024 1:00 PM EST Office Visit [facility] [address] [place] [phone] Karen Raman, PHONE TECHNICIAN-TECHNICAL FELLOW [address] [place] [address] [facility] Start: 12-17-2023 End: 12-17-2023 Patient encounter procedure 12/17/2023 1:00 PM EDT Office Visit [facility] [address] [place] [phone] Karen Raman, PHONE TECHNICIAN-TECHNICAL FELLOW [address] [place] [address] [facility] Start: 11-20-2023 End: 11-20-2023 Patient encounter procedure 11/20/2023 1:10 PM EDT Office Visit [facility] [address] [place] [address] Karen Raman, PHONE TECHNICIAN-TECHNICAL FELLOW [address] [place] [address] Arrived [facility] Comment on above: Arrived Payers Date Payer Category Payer Self-pay 2024 Private Health Insurance [employer] [id number] 2024 Unknown [id number] 2023 Managed Care HMO (unspecified) [employer]ET[employer] A[employer]NA [id number] 2023-Present [address] [place] [address] HMO [id number] 2023 Private Health Insurance [id number] 2022 Unknown BCBS BCBS [id number] 2022-Present [phone] [address] [place] [address] [id number] 2022 Unknown [id number] 2017 Unknown [id number] 2000 Unknown [id number] 593 2000 Unknown [id number]. 593 2000 Unknown [id number]. 593 2000 Unknown [id number] [id number]. 1259 2000 Unknown [id number] [id number]. 1259 2000 Unknown [id number] [id number]. 1259 2000 Unknown [id number] [id number]. 1259 1983 Unknown [id number] [id number]. 727 1959 Unknown [id number] 1959 Unknown [id number] 1959 Unknown [id number] Unknown Kat SMITH/BS [id number] Unknown [id number] 531 Social History Date Type Detail Facility Start: 05-17-2023 Tobacco smoking status NHIS Never smoked tobacco [facility] Start: 05-17-2023 Tobacco use and exposure Smokeless tobacco non-user [facility] Start: 05-31-2023 End: 06-26-2024 Alcoholic beverage intake Ex-drinker (finding) [facility] Start: 05-17-2023 End: 05-31-2023 History of Social function [facility] Start: 05-17-2023 End: 05-31-2023 Alcohol Use Disorder Identification Test - Consumption [AUDIT-C] [facility] How often to you hav e a drink containing alcohol? Monthly or less [facility] How many standard dr inks containing alcohol do you have on a typical day? 1 or 2 [facility] How often do you hav e 6 or more drinks on 1 occasion? Less than monthly [facility] Start: 2000 Sex assigned at Not on file [facility] Work Phone: Start: 06-17-2024 Sex Female (finding) [facility] Start: 2000 Sex Assigned At Female [facility] History of Present illness Narrative 06-26-2024 Nilam Phillips MD - 06/26/2024 3:45 PM EDT Note Date & Type Note Facility 06-26-2024 History of Presen t illness Narrative Images from the original note were not included. Nilam Phillips MD Obstetrics and Gynecology Patient: Jayna Miranda : 2000 (23 y.o.) Exam Date: 06/26/2024 Reason for Visit - Chief Complaint Patient presents with Procedure The patient presents for a gynecological procedure, likely a cervical biopsy or colposcopy. She reports experiencing mild cramping on and off. The patient mentions that she started spotting for about 30 days after a previous procedure, which she states was not a normal reaction for her The patient describes the current procedure as feeling like a hard pinch, comparing it to getting a piercing. She anticipates some post-procedure symptoms, including a watery bloody discharge Visit Vitals OB Status Having periods Smoking Status Never Indications: Pap smear on 05/19/24 showed: LGSIL. The prior paps was normal. History of Present Illness, Associated Treatments and Results - OB History Para Term AB Living 1 0 0 0 1 0 SAB IAB Ectopic Multiple Live Births 0 0 0 0 0 # Outcome Date GA Lbr Glenn/2nd Weight Sex Type Anes PTL Lv 1 AB Colposcopy Procedure Note Procedure Details The risks and benefits of the procedure and Verbal informed consent obtained. Speculum placed in vagina and excellent visualization of cervix achieved, cervix swabbed x 3 with acetic acid solution. Colposcopic exam was normal .SQ junction was inside endocervix Findings: Cervix: SCJ visualized 360 degrees no lesions Vaginal inspection: no Vulvar colposcopy: no Specimens: ECC,Cervical 200 Complications: none. Plan: Specimens labelled and sent to Pathology. Will base further treatment on Pathology findings. Treatment options discussed with patient. Review of Systems - Constitutional: Negative. HENT: Negative. Eyes: Negative. Respiratory: Negative. Cardiovascular: Negative. Gastrointestinal: Negative. Endocrine: Negative. Genitourinary: Negative. Musculoskeletal: Negative. Skin: Negative. Allergic/Immunologic: Negative. Neurological: Negative. Hematological: Negative. Psychiatric/Behavioral: Negative. No Known Allergies Current Outpatient Medications: Condoms - Male misc, 1 Units Daily, Disp: 10 Units, Rfl: 2 norelgestromin-ethinyl estradiol (Xulane) 150-35 MCG/24HR, Apply 1 patch each week for 3 weeks, then remove for 1 week., Disp: 3 patch, Rfl: 12 spironolactone (Aldactone) 50 MG tablet, Take 1 tablet, by mouth, once daily, 30 days, Disp: 30 tablet, Rfl: 2 tretinoin (Retin-A) 0.025 % cream, Apply to face, once daily at evening/night time, 30 day supply, Disp: 20 g, Rfl: 11 No past medical history on file. No past surgical history on file. Family History Problem Relation Name Age of Onset Melanoma Paternal Grandmother Social History Tobacco Use Smoking Status Never Smokeless Tobacco Never Physical Exam - General appearance, mentation, extraocular movements, facial strength and movement, hearing, upper and lower extremity strength and tone, sensation to gross testing, coordination, and gait are normal or at baseline unless noted below. Physical Exam Constitutional: Appearance: Normal appearance. Genitourinary: Right Labia: No rash. Left Labia: No rash. No vaginal discharge. No vaginal prolapse present. No vaginal atrophy present. No cervical lesion. HENT: Head: Normocephalic and atraumatic. Neurological: Mental Status: She is alert and oriented to person, place, and time. Psychiatric: Mood and Affect: Mood normal. Behavior: Behavior normal. Assessment/Plan Discussed pap results and need for more frequent pap tests /treatments. Tolerated procedure well. Patient advised to call office with any problems/concerns or signs of infection- fever, chills, abnormal discharge, pain etc.. Patient will return in 6 months for repeat pap. Will call with results. ICD-10-CM 1. Encounter for screening for cervical cancer Z12.4 2. Acute vaginitis N76.0 3. Pelvic pain in female R10.2 4. LGSIL of cervix of undetermined significance R87.612 1. Cervical cancer screening: - Assessment: - Patient underwent colposcopy - - Current screening completed successfully without immediate complications - Plan: a) Laboratory results expected by mid-June b) Results to be available on patient's MyChart account c) Follow-up appointment scheduled in 6 months for repap d) Patient advised to expect possible watery or bloody discharge for approximately 72 hours post-procedure 2. Post-procedure care: - Assessment: - Patient is at risk for minor post-procedure symptoms following cervical cancer screening - Education provided on expected post-procedure effects to alleviate patient concerns - Plan: a) Informed patient to expect possible watery or bloody discharge for approximately 72 hours b) Reassured patient that mild cramping is normal post-procedure documented in this encounter [facility] Radiology Diagnostic study note 06-16-2024 Note Date & Type Note Facility 06-16-2024 Radiology Diagnostic study note [facility] [place] [address] Ultrasound Report Signed Patient: Jayna Miranda MR#: [id number] : 2000 Acct:[id number] Age/Sex: 23 / F ADM Date: 5 Loc: [facility] Room: Type: [facility] Attending Dr: Kaylah Yang MD Ordering Provider: Kaylah Yang MD Date of Service: 06/16/24 US/US breast LT limited: N64.4 Copies to: Kaylah Ynag MD~ CLINICAL DATA: Left breast pain LIMITED left BREAST ULTRASOUND COMPARISON:None FINDINGS: In the area of pain involving the 12-6 o'clock positions of the left breast as well as the retroareolar region, no solid mass or cyst is noted. US/US breast LT limited IMPRESSION: NO ULTRASOUND EVIDENCE OF MALIGNANCY. THE PATIENT'S BREAST PAIN SHOULD BE HANDLED ON A CLINICAL BASIS. ANNUAL SCREENING MAMMOGRAPHY AT AGE 40 UNLESS OTHERWISE CLINICALLY INDICATED IS RECOMMENDED. RESULT CODE: 1 Negative Management of a palpable abnormality must be based on clinical grounds. Patient was entered into a reminder system with a target due date for the next mammogram. Impression dictated by: Zane Perkins Jr., D.O.06/16/2024 2:14 PM Dictation Location: [facility] Tech: Alexa Ortiz Transcribed By: TERESO 06/16/24 1414 Dictated By: Zane Perkins Jr, DO 06/16/24 1412 Signed By: 06/16/24 1442 [facility] History of Present illness Narrative 11-20-2023 Karen Raman, PHONE TECHNICIAN-TECHNICAL FELLOW - 11/20/2023 1:10 PM EDT Note Date & Type Note Facility 11-20-2023 History of Presen t illness Narrative Images from the original note were not included. Acne Location: face, back, chest Duration: 2 years Nature of acne: nodules Modifying factors: denies worsening with menses, on depo x 9 months Associated Factors: combination Tried/failed: isotretinoin at age 16- completed full course Current treatment plan: toner, acne wash, acid serum, derma plaining Lesions: Location: right 4th and 5th webspace Duration: couple months Quality: painful Associated symptoms: enlarged Treatments: none. Previous warts removed surgically New patient All pertinent medical history, medications, and allergies were reviewed. General Exam: alert , oriented to person, place, and time , normal affect, well appearing Unaccompanied A focused exam completed based on patient reported problems, see below: 1. Acne vulgaris Head - Anterior (Face) Scattered comedones and inflammatory pustules. Flaring today Patient was counseled that this condition is chronic and can be controlled, but not cured. The patient and/or parent were counseled that it may take up to 2-3 months to notice significant improvement of the acne. Start spironolactone 50 mg every day and tretinoin 0.025% cream at bedtime. Discussed spironolactone as a treatment option. Patient denies history of low blood pressure, kidney problems, or current /plans to become . Caution with first dose - monitor for dizziness/lightheadedness, caution driving after first dose. Encouraged patient to stay hydrated while on this medication and avoid potassium supplements. Avoid while on this medication, discontinue immediately if occurs. Notify office if side effects develop. Plan to recheck in 2 months. spironolactone (Aldactone) 50 MG tablet - Head - Anterior (Face) Take 1 tablet, by mouth, once daily, 30 days tretinoin (Retin-A) 0.025 % cream - Head - Anterior (Face) Apply to face, once daily at evening/night time, 30 day supply 2. Common wart Right 4th-5th Toe Web Erythematous verrucous papule(s). Patient and/or family member was counseled regarding warts. Treatment options were discussed including cryotherapy, fannie antigen injections, and topical Cantharidin. It was explained that it typically requires multiple treatments before the wart(s) completely resolve. The importance of following up every 3-4 weeks was emphasized. Encouraged OTC wart removers in between appointments to hasten resolution. Patient elected for cryotherapy today, see procedure note. Diagnosis: Verruca Indication: Inflamed Consent: Verbal consent was obtained and risks were discussed, including, but not limited to risks of scarring, darker or child specialist pigmentary changes, recurrence, incomplete removal and infection. Method: Liquid nitrogen was used to treat the lesion(s) with two 5-10 second freeze-thaw cycles Number of lesions treated: 1 Post-procedure instructions: Instructions were given orally and in writing. The office will be contacted if the lesion fails to resolve despite treatment, or if a side effect develops such as abnormal crusting, scabbing, redness or tenderness Cryotherapy, skin lesion - Right 4th-5th Toe Web 3. Pain Right 4th Metatarsophalangeal Joint Next Visit: 2 months for acne, 1 month for wart documented in this encounter [facility] Evaluation note Note Date & Type Note Facility Evaluation note Diagnosis Acne vulgaris Other acne Common wart Other specified viral warts Pain Generalized pain documented in this encounter [facility] Evaluation note Note Date & Type Note Facility Evaluation note No assessment information [facility] Work Phone: Evaluation note Note Date & Type Note Facility Evaluation note Diagnosis Encounter for screening for cervical cancer Acute vaginitis Unspecified vaginitis and vulvovaginitis Pelvic pain in female Unspecified symptom associated with female genital organs LGSIL of cervix of undetermined significance documented in this encounter [facility] Summary Purpose Family History No Family History Records FoundNo Family History Records FoundNo Family History Records FoundNo Family History Records Found Advance Directives Advance Directive Response Recorded Date/ Time Advance Directives No June 03 12:29pm Chief Complaint and Reason for Visit Chief Complaint Admit Date N64.4 June 16, 2024 1:4 8pm Additional Source Comments INFORMATION SOURCE (unrecogn ized section and content) DATE CREATED AUTHOR 07/08/2022 [facility] DATE CREATED AUTHOR AUTHOR'S ORGANIZ ATION 08/13/20[facility] DATE CREATED AUTHOR AUTHOR'S ORGANIZ ATION 06/21/2024 [facility] DATE CREATED AUTHOR AUTHOR'S ORGANIZ ATION 06/28/2024 [facility] EPIC Care Teams (unrecognized sec tion and content) Travel Services Professional Relationship Specialty Start Date End Date Kaylah Yang MD [address] [place] [address] PCP - General Family Medicine 05/17/23 Travel Services Professional Relationship Specialty Start Date End Date Kaylah Yang MD [address] [place] [address] PCP - General Family Medicine 05/17/23 Team Status: Active Member Role Status Dates Kaylah Yang MD Primary Care Provider Active Team Status: Inactive Member Role Status Dates Kaylah Yang MD Primary Care Provide r, Attending Provider Active Start: June 16, 2024 End: June 16, 2024 Reason for Visit (unrecogniz ed section and content) Reason Comments Acne Suspicious Skin Lesion Reason Comments Procedure Patient present for Colpo, patient was given in house test. test: Neg Goals (unrecognized section and content) Goals may be documented in a n alternate section FOR RECORDS PERTAINING TO PATIENTS WHO ARE [...] BE BASED ON THE PRIMARY CLINICAL RECORDS. [facility]. provides no warranty or guarantee of the accuracy or completeness of information in this document.
== END 2024-08-27 09:45 | disposition home or self-care (01) ==
LOC: SLEEP 09:44
PROVIDERS: PCP Family Medicine; Visit Provider Family Medicine
DX: G47.33 Obstructive sleep apnea (adult) (pediatric) (principal); F51.01 Primary insomnia
CPT/HCPCS: 95806

== ENCOUNTER 2024-09-26 07:39 | Outpatient (OUT) | payer OTHER, MEDICAID, SELFPAY ==
--- OUTSIDE RECORDS SUMMARY | 2024-09-26 07:48 | XMS_ITS | CCD ---
Author Organization [facility] Care Team Providers Care Gas Meter Installer Helper Name Role Phone EDGARD ., DR ADRIAN [...] Unavailable PAY ., DR PULIDO Attending Unavailable FORT LEONARD WOOD, DR ELLIOTT Oseguera Consulting Unavailable BRIAN ., YURI Consulting Unavailable GUILHERMELAmando R Referring Unavailable GUILHERMELAmando Attending Unavailable GUILHERMELAmando Admitting Unavailable Kaylah Yang Primary Care Unavailable Kaylah Yang MD Primary Care Provider [phone] Kaylah Yang MD Primary Care Provider [phone] Kaylah Yang MD Attending Provider Kaylah [...] 2 05/24/2024 Active 168 hr ethinyl estradiol 0.94230 mg/hr / norelgestromin 0.70872 mg/hr transdermal system (1 source) Progestin, Estrogen [...] te Episodic/Chronic Other aftercare (1 source) Other termite renewal inspector (current) drug therapy; Translations: [OTH USP CURRENT DRUG THERAPY] Onset: 01-10-2022 Episodic Other [...] provided ICD-10: N72 Pathologist name Comment [facility] Comment on above: Electronically marvin d: . Lincoln Tobar MD, Pathologist Pathology report final diagnosis Narrative Comment [facility] Comment on above: Diagnosis: A. ENDOCERVIX, CURETTAGE: - GLANDULAR AND SQUAMOUS CERVICAL EPITHELIUM. - NEGATIVE FOR DYSPLASIA. B. CERVIX, BIOPSY: - SCANT SUPERFICIAL FRAGMENTS OF CERVICAL AND GLANDULAR SQUAMOUS EPITHELIUM WITH CERVICITIS. - NEGATIVE FOR DYSPLASIA. [facility] 06/30/2024 1409 Local Pathology report gross observation Narrative Comment [facility] Comment on above: Gross description: . A. [...] MUCOUS TISSUE. SUBMITTED ENTIRELY IN 1 CASSETTE(S). [facility] 06/27/2024 1444 Local Pathology report site of origin Narrative Comment [facility] are Comment on above: Material submitted: . PART A: endocervix - ENDOCERVICAL CURETTAGE PART B: cervix - CERVICAL BIOPSY [facility] Comment on above: CPT . 407487, [id number] Performed at: [facility] [address] [place] [address] [id number] Auto Damage Appraiser: Matthew Alegre MD, Phone: [phone] Performed at: [address] [place] [address] Clinical Lab [address] [place] [address] [id number] Auto Damage Appraiser: Lincoln Tobar MD, Phone: [phone] [facility] HCG ( test) Ql (U)o n 06-26-2024 Interpretation and review of laboratory results Normal [facility] Preg Test, Ur Negative Negative [facility] breast LT limitedon 06-16 US breast LT limited [facility] Main [address] [address] Ultrasound Report Signed Patient: Jayna Miranda MR#: [id number] 4 : 2000 Acct:[id number] Age/Sex: 23 / F ADM Date: 06/16/24 Loc: [facility] Room: Type: [facility] Attending Dr: Kaylah Yang MD Ordering Provider: [...] Perkins Jr., D.O.06/16/2024 2:14 PM Dictation Location: [facility] Tech: Alexa Angel Transcribed By: TERESO 06/16/24 141 Dictated By: Zane Perkins Jr, DO 06/16/24 141 Signed By: 06/16/24 1442 Normal [facility] US breast RT limitedon 06-16 US breast RT limited [facility] [place] [address] Ultrasound Report Signed Patient: Jayna Miranda MR#: [id number] 4 : 2000 Acct:[id number] Age/Sex: 23 / F ADM Date: 06/16/24 Loc: [facility] Room: Type: [facility] Attending Dr: Kaylah Yang MD Ordering Provider: [...] Perkins Jr., D.O.06/16/2024 2:14 PM Dictation Location: [facility] Tech: Alexa Ortiz Transcribed By: TERESO 06/16/241413 Dictated By: Zane Perkins Jr, DO 06/16/241411 Signed By: 06/16/241413 Normal [facility] No Panel Informationon 11-19 [facility] INSULINon 07-01-2022 Insulin 8.7 uIU/mL Normal 2.6-24.9 [facility] Comment on above: Performed By: #### I NSULIN #### [facility] [address] [place] [address] Dr. Jerry Vázquez CBC AUTO DIFFon 06-30-2022 BASO # 0.0 103/ul Normal 0.0-0.1 [facility] Comment on above: Performed By: #### C BC #### [facility] [address] [place] [address] Dr. Jerry Vázquez Basophils/100 WBC (Bld) 0.7 % Normal 0.2-2.0 [facility] Comment on above: Performed By: #### C BC #### [facility] [address] [place] [address] Dr. Jerry Vázquez EO # 0.1 103/ul Normal 0.0-0.7 [facility] Comment on above: Performed By: #### C BC #### [facility] [address] [place] [address] Dr. Jerry Vázquez Eosinophils/100 WBC (Bld) 2.2 % Normal 0.9-7.0 [facility] Comment on above: Performed By: #### C BC #### [facility] [address] [place] [address] Dr. Jerry Vázquez Erythrocyte distribution width (RBC) [Ratio] 11.9 % Normal 11.0-15.0 [facility] Comment on above: Performed By: #### C BC #### [facility] [address] [place] [address] Dr. Jerry Vázquez Hematocrit (Bld) [Volume fraction] 41.4 % Normal 36.0-48.0 [facility] Comment on above: Performed By: #### C BC #### [facility] [address] [place] [address] Dr. Jerry Vázquez Hemoglobin (Bld) [Mass/Vol] 13.9 g/dL Normal 12.0-16.0 [facility] Comment on above: Performed By: #### C BC #### [facility] [address] [place] [address] Dr. Jerry Vázquez IG # 0.01 10e3/ul Normal 0.00-0.03 [facility] Comment on above: Performed By: #### C BC #### [facility] [address] [place] [address] Dr. Jerry Vázquez IG % 0.2 % Normal 0.0-0.5 [facility] Comment on above: Performed By: #### C BC #### [facility] [address] [place] [address] Dr. Jerry Vázquez LYMPH # 2.3 103/ul Normal 1.2-3.8 [facility] Comment on above: Performed By: #### C BC #### [facility] [address] [place] [address] Dr. Jerry Vázquez Lymphocytes/100 WBC (Bld) 37.4 % Normal 20.5-60.0 [facility] Comment on above: Performed By: #### C BC #### [facility] [address] [place] [address] Dr. Jerry Vázquez MANUAL DIFF REQ NO Normal [facility] Comment on above: Performed By: #### C BC #### [facility] [address] [place] [address] Dr. Jerry Vázquez MCH (RBC) [Entitic mass] 31.4 pg Normal 26.7-34.0 [facility] Comment on above: Performed By: #### C BC #### [facility] [address] [place] [address] Dr. Jerry Vázquez MCHC (RBC) [Mass/Vol] 33.6 g/dL Normal 29.9-35.2 [facility] Comment on above: Performed By: #### C BC #### [facility] [address] [address] [address] Jerry Vázquez MCV (RBC) [Entitic vol] 93.7 fL Normal 81.0-99.0 [facility] Comment on above: Performed By: #### C BC #### [facility] [address] [address] [address] Jerry Váqzuez MONO # 0.6 103/ul Normal 0.3-0.8 [facility] Comment on above: Performed By: #### C BC #### [facility] [address] [place] [address] Dr. Jerry Vázquez Monocytes/100 WBC (Bld) 10.6 % Normal 1.7-12.0 [facility] Comment on above: Performed By: #### C BC #### [facility] [address] [place] [address] Dr. eJrry Vázquez NEUT # 2.9 103/ul Normal 1.4-6.5 [facility] Comment on above: Performed By: #### C BC #### [facility] [address] [place] [address] Dr. Jerry Vázquez Neutrophils/100 WBC (Bld) 48.9 % Normal 43.0-75.0 [facility] Comment on above: Performed By: #### C BC #### [facility] [address] [place] [address] Dr. Jerry Vázquez Platelet mean volume (Bld) [Entitic vol] 9.6 fL Normal 9.5-13.5 [facility] Comment on above: Performed By: #### C BC #### [facility] [address] [place] [address] Dr. Jerry Vázquez PLT 345 103/ul Normal 150-450 [facility] Comment on above: Performed By: #### C BC #### [facility] [address] [place] [address] Dr. Jerry Vázquez RBC 4.42 106/ul Normal 4.20-5.40 [facility] Comment on above: Performed By: #### C BC #### [facility] [address] [address] [address] Jerry Vázquez WBC 6.0 103/ul Normal 4.0-11.0 [facility] Comment on above: Performed By: #### C BC #### [facility] [address] [place] [address] Dr. Jerry Vázquez FREE THYROXINE INDEX T7on FTI 2.52 Normal 1.30-4.50 [facility] Comment on above: Performed By: #### T SH, LIPID, T7, CMP #### [facility] [address] [place] [address] Dr. Jerry Vázquez T3U 36.0 % Normal 30.0-39.0 [facility] Comment on above: Performed By: #### T SH, LIPID, T7, CMP #### [facility] [address] [place] [address] Dr. Jerry Vázquez T4 [Mass/Vol] 7.00 ug/dL Normal 4.80-13.90 [facility] Comment on above: Performed By: #### T SH, LIPID, T7, CMP #### [facility] [address] [place] [address] Dr. Jerry Vázquez GLYCOHEMOGLOBIN A1Con 2022 ADA RECOMMENDATION SEE BELOW Normal [facility] Comment on above: Result Comment: ADA RECOMMENDED LIMIT 4.0 - 6.0 ADA THERAPEUTIC TARGET < 7.0 ACTION SUGGESTED > 7.0 Performed By: #### G RASTCX #### [facility] [address] [place] [address] Dr. Jerry Vázquez Glucose [Mass/Vol] 88 mg/dL Normal [facility] Comment on above: Performed By: #### G RASTCX #### [facility] [address] [place] [address] Dr. Jerry Vázquez HbA1c (Bld) [Mass fraction] 4.7 % Normal 4.5-6.2 [facility] Comment on above: Performed By: #### G RASTCX #### [facility] [address] [place] [address] Dr. Jerry Vázquez IRONon 04-28-2023 Iron [Mass/Vol] 123.0 ug/dL Normal 50.0-170.0 [facility] Comment on above: Performed By: #### I REMEDIOS KENT #### [facility] [address] [address] [address] Jerry Vázquez LIPID PROFILEon 06-30-2022 CHOL-HDL RATIO NORM SEE BELOW Normal [facility] Comment on above: Result Comment: 3.3 - 4.4 LOW RISK 4.4 - 7.1 AVERAGE RISK 7.1 - 11.0 MODERATE RISK >11.0 HIGH RISK Performed By: #### G RASTCX #### [facility] [address] [address] [address] Jerry Vázquez Cholesterol [Mass/Vol] 133 mg/dL Normal <=200 [facility] Comment on above: Performed By: #### G RASTCX #### [facility] [address] [address] [address] Jerry Vázquez Cholesterol in HDL [Mass/Vol] 58 mg/dL Normal 40-60 [facility] Comment on above: Performed By: #### G RASTCX #### [facility] [address] [address] [address] Jerry Vázquez Cholesterol in LDL [Mass/Vol] 68.2 mg/dL Normal [facility] Comment on above: Performed By: #### G RASTCX #### [facility] [address] [address] [address] Jerry Vázquez Cholesterol.total/Cho lesterol in HDL [Mass ratio] 2.3 {ratio} Normal [facility] Comment on above: Performed By: #### G RASTCX #### [facility] [address] [address] [address] Jerry Vázquez HDL NORMAL > or = 60 mg/dl - LOW CARDIOVASCULAR RISK <40 mg/dl - HIGH CARDIOVASCULAR RISK Normal [facility] Comment on above: Performed By: #### G RASTCX #### [facility] [address] [address] [address] Jerry Vázquez LDL CALC NORMAL SEE BELOW Normal [facility] Comment on above: Result Comment: <100 mg/dl OPTIMAL 100 - 129 mg/dl NEAR OR ABOVE OPTIMAL 130 - 159 mg/dl BORDERLINE HIGH 160 - 189 mg/dl HIGH >190 mg/dl VERY HIGH Performed By: #### G RASTCX #### [facility] [address] [place] [address] Dr. Jerry Vázquez Triglyceride [Mass/Vol] 34 mg/dL Normal <=150 [facility] Comment on above: Performed By: #### G RASTCX #### [facility] [address] [place] [address] Dr. Jerry Vázquez VLDL CALC 6.8 mg/dL Normal [facility] Comment on above: Performed By: #### G RASTCX #### [facility] [address] [place] [address] Dr. Jerry Vázquez PROF 14(COMP METB)on 023 Albumin [Mass/Vol] 3.8 g/dL Normal 3.4-5.0 [facility] Comment on above: Performed By: #### G RASTCX #### [facility] [address] [place] [address] Dr. Jerry Vázquez Albumin/Globulin [Mass ratio] 1.1 {ratio} Normal [facility] Comment on above: Performed By: #### G RASTCX #### [facility] [address] [place] [address] Dr. Jerry Vázquez ALP [Catalytic activity/Vol] 57 U/L Normal 46-116 [facility] Comment on above: Performed By: #### G RASTCX #### [facility] [address] [place] [address] Dr. Jerry Vázquez ALT [Catalytic activity/Vol] 22 U/L Normal 14-59 [facility] Comment on above: Performed By: #### G RASTCX #### [facility] [address] [place] [address] Dr. Jerry Vázquez Anion gap [Moles/Vol] 11.1 mmol/L Normal [facility] Comment on above: Performed By: #### G RASTCX #### [facility] [address] [place] [address] Dr. Jerry Vázquez AST [Catalytic activity/Vol] 12 U/L Critically low 15-37 [facility] Comment on above: Performed By: #### G RASTCX #### [facility] [address] [place] [address] Dr. Jerry Vázquez Bilirubin [Mass/Vol] 0.7 mg/dL Normal 0.2-1.0 [facility] Comment on above: Performed By: #### G RASTCX #### [facility] [address] [place] [address] Dr. Jerry Vázquez Calcium [Mass/Vol] 9.1 mg/dL Normal 8.5-10.1 [facility] Comment on above: Performed By: #### G RASTCX #### [facility] [address] [place] [address] Dr. Jerry Vázquez Chloride [Moles/Vol] 106 mmol/L Normal 98-107 [facility] Comment on above: Performed By: #### G RASTCX #### [facility] [address] [place] [address] Dr. Jerry Vázquez CO2 [Moles/Vol] 28.7 mmol/L Normal 21.0-32.0 [facility] Comment on above: Performed By: #### G RASTCX #### [facility] [address] [place] [address] Dr. Jerry Vázquez Creatinine [Mass/Vol] 0.84 mg/dL Normal 0.55-1.02 [facility] Comment on above: Performed By: #### G RASTCX #### [facility] [address] [place] [address] Dr. Jerry Vázquez EGFR-AF BULGARIAN >60 Normal >=60 [facility] Comment on above: Performed By: #### G RASTCX #### [facility] [address] [place] [address] Dr. Jerry Vázquez EGFR-NON AF BULGARIAN >60 Normal >=60 [facility] Comment on above: Performed By: #### G RASTCX #### [facility] [address] [place] [address] Dr. Jerry Vázquez Globulin (S) [Mass/Vol] 3.5 g/dL Normal [facility] Comment on above: Performed By: #### G RASTCX #### [facility] [address] [place] [address] Dr. Jerry Vázquez Glucose [Mass/Vol] 85 mg/dL Normal 74-106 [facility] Comment on above: Performed By: #### G RASTCX #### [facility] [address] [place] [address] Dr. Jerry Vázquez Potassium [Moles/Vol] 3.8 mmol/L Normal 3.5-5.1 [facility] Comment on above: Performed By: #### G RASTCX #### [facility] [address] [place] [address] Dr. Jerry Vázquez Protein [Mass/Vol] 7.3 g/dL Normal 6.4-8.2 [facility] Comment on above: Performed By: #### G RASTCX #### [facility] [address] [place] [address] Dr. Jerry Vázquez Sodium [Moles/Vol] 142 mmol/L Normal 136-145 [facility] Comment on above: Performed By: #### G RASTCX #### [facility] [address] [place] [address] Dr. Jerry Vázquez Urea nitrogen [Mass/Vol] 9.0 mg/dL Normal 7.0-18.0 [facility] Comment on above: Performed By: #### G RASTCX #### [facility] [address] [place] [address] Dr. Jerry Vázquez Urea nitrogen/Creatinine [Mass ratio] 10.7 mg/mg Normal [facility] Comment on above: Performed By: #### G RASTCX #### [facility] [address] [place] [address] Dr. Jerry Vázquez TSHon 06-30-2022 TSH 2.040 uIU/mL Normal 0.358-3.740 [facility] Comment on above: Performed By: #### G RASTCX #### [facility] [address] [place] [address] Dr. Jerry Vázquez VITAMIN D 25 OHon 06-30-2022 VIT D 25-OH 14.0 ng/mL Normal [facility] Comment on above: Performed By: #### I DONTE VITAD #### [facility] [address] [address] [address] Jerry Vázquez VIT D RANGES SEE BELOW Normal [facility] Comment on above: Result Comment: <20 ng/mL Vit D deficient 20 - <30 ng/mL Vit D insufficient 30 - 100 ng/mL Vit D sufficient >100 ng/mL Potential Toxicity Performed By: #### I DONTE VITAD #### [facility] [address] [address] [address] Jerry Vázquez XR CHEST 2 Von [...] ELLIOTT LAZO Date: 2022-02-10 14:20 Normal [facility] XR TSPINE 2 VIEWSon 02-11-20 XR TSPINE [...] ELLIOTT LAZO Date: 2022-02-10 14:22 Normal [facility] Covid-19 PCR (CVDTB)on SARS-CoV-2 (COVID-19) RNA NICOLAS+probe Ql (Unsp spec) Not detected Normal NOT DETECTED [facility] Comment on above: Result Comment: When diagnostic [...] for this test is supported by the [employer] of [employer] and Human Service's declaration that [...] used). Performed By: #### C VDTBH #### [facility] [address] [place] [address] Dr. Jerry Vázquez GROUP A STREP CULTUREon -0 S. pyogenes Ag Ql (Unsp spec) Culture Observations: NEGATIVE FOR GROUP A STREPTOCOCCUS. Normal [facility] Comment on above: Performed By: #### G RASTCX #### [facility] [address] [place] [address] Dr. Jerry Vázquez INFLUENZA A AND B AGon 01-08 INFLUANEGH SEE BELOW Normal [facility] Comment on above: Result Comment: Nega tive for Flu A protein angiten. Infection due to Flu A cannot be ruled out. Flu A angiten in the sample may be below the detection limit of the test. Performed By: #### I NFLUAB #### [facility] [address] [place] [address] Dr. Jerry Vázquez INFLUBNEGH SEE BELOW Normal [facility] Comment on above: Result Comment: Nega tive for Flu B protein antigen. Infection due to Flu B cannot be ruled out. Flu B antigen in the sample may be below the detection limit of the test. Performed By: #### I NFLUAB #### [facility] [address] [place] [address] Dr. Jerry Vázquez INFLUENZA A AG Negative Normal NEGATIVE SEE COMMENT [facility] Comment on above: Performed By: #### I NFLUAB #### [facility] [address] [address] [address] Jerry Vázquez INFLUENZA B AG Negative Normal NEGATIVE SEE COMMENT [facility] Comment on above: Performed By: #### I NFLUAB #### [facility] [address] [address] [address] Jerry Vázquez INTERNAL CONTROLS Within Normal Limits Normal Wi thin Normal Limits [facility] Comment on above: Performed By: #### I NFLUAB #### [facility] [address] [address] [address] Jerry Vázquez MONOon 01-08-2022 Monocytes (Bld) [#/Vol] Negative Normal NEGATIVE [facility] Comment on above: Performed By: #### G RASTCX #### [facility] [address] [address] [address] Jerry Vázquez STREPT SCREENon 01-08-2022 STREP SCREEN A Negative Normal NEGATIVE [facility] Comment on above: Performed By: #### S SCRN #### [facility] [address] [address] [address] Jerry Vázquez Vital Signs Date Time Vital Sign Value Performing Clinician Faci lity 06-26-2024 16:01-0400 Body mass index (BMI) [Ratio] 26.88 kg/m2 Nilam Phillips MD Work Phone: [facility] 06-26-2024 16:01-0400 Body weight 74.39 kg Nilam Phillips MD Work Phone: [facility] 06-26-2024 16:01-0400 Diastolic blood pressure 70 mm[Hg] Nilam Phillips MD Work Phone: [facility] 06-26-2024 16:01-0400 Systolic blood pressure 118 mm[Hg] Nilam Phillips MD Work Phone: [facility] Healthcare Encounters Encounter Date Encounter Type Care Provider Facility Start: 06-26-2024 End: 06-26-2024 Patient encounter procedure Nilam Phillips MD Work Phone: [facility] Comment on above: Encounter for screen ing for cervical cancer; Acute vaginitis; Pelvic pain in female; LGSIL of cervix of undetermined significance Start: 06-26-2024 End: 06-26-2024 ambulatory NILAM PHILLIPS Not Available Start: 06-16-2024 End: 06-16-2024 Patient encounter procedure Kaylah Yang MD Work Phone: [facility] Start: 06-16-2024 End: 06-16-2024 ambulatory Kaylah Yang MD Work Phone: [facility] Work Phone: Start: 05-19-2024 End: 05-19-2024 ambulatory NILAM PHILLIPS Not Available Start: 11-20-2023 End: 11-20-2023 Bamboo flowsheet Karen A Felter [employer] CLERK Work Phone: [facility] Start: 11-20-2023 End: 11-20-2023 Bamboo flowsheet Karen A Felter [employer] CLERK Work Phone: [facility] Start: 11-20-2023 End: 11-20-2023 Office outpatient new 30 minutes Karen A Felter [employer] CLERK Work Phone: [facility] Comment on above: Acne vulgaris; Common wart; Pain Start: 11-20-2023 End: 11-20-2023 ambulatory KAREN A FELTER Not Available Start: 06-30-2022 End: 07-01-[address] KAYLAH YANG . Facility:[facility] Start: 02-10-2022 End: 02-10-[address] KAYLAH YANG . Facility:[facility] Start: 01-08-2022 End: 01-08-[address] KAYLAH YANG . Facility:[facility] Start: 03-02-2017 End: 03-02-2017 ambulatory Amando HERRERA Facility:[facility] [place] Procedures Date Procedure Procedure Detail Performing Clinician Start: 06-26-2024 PATHOLOGY REPORT Nilam Phillips MD Work Phone: Start: 06-26-2024 Urine test visual color cmprsn meths Nilam Phillips MD Work Phone: Start: 06-16-2024 Ultrasonography of l eft breast Kaylah Yang MD Work Phone: Start: 11-20-2023 CRYOTHERAPY SKIN LESION Karen Raman PERSHING MISSILE CREWMEMBER-DEGREE CLERK Work Phone: Plan of Treatment Date Care Activity Detail Author Start: 12-17-2024 End: 12-17-2024 Patient encounter procedure 12/17/2024 3:30 PM EDT Office Visit [facility] [address] [place] [phone] Nilam Phillips MD [address] [place] [address] [facility] Start: 01-21-2024 End: 01-21-2024 Patient encounter procedure 01/21/2024 1:00 PM EST Office Visit [facility] [address] [place] [phone] Karen Raman, [employer]SHING MISSILE CREWMEMBER-DEGREE CLERK [address] [place] [address] [facility] Start: 12-17-2023 End: 12-17-2023 Patient encounter procedure 12/17/2023 1:00 PM EDT Office Visit [facility] [address] [place] [phone] Karen Raman, [employer]SHING MISSI[employer] CREWMEMBER-DEGREE CLERK [address] [place] [address] [facility] Start: 11-20-2023 End: 11-20-2023 Patient encounter procedure 11/20/2023 1:10 PM EDT Office Visit [facility] [address] [place] [address] Karen Raman, PERSHING MISSILE CREWMEMBER-DEGREE CLERK [address] [place] [address] Arrived [facility] Comment on above: Arrived Payers Date Payer Category Payer Self-pay 2024 Private Health Insurance [employer] [id number] 2024 Unknown [id number] 2023 Managed Care HMO (unspecified) [employer] A[employer] [id number] 2023-Present [address] [place] [address] HMO [id number] 2023 Private Health Insurance [id number] 2022 Unknown BCBS BCBS xxxxxx [id number] 2022-Present [phone] [address] [place] [address] [id number] 2022 Unknown [id number] 2017 Unknown [id number] 2000 Unknown [id number] 2.16.840.1.655245.3.579.2. 593 2000 Unknown [id number] 2.16.840.1.558676.3.579.2. 593 2000 Unknown [id number] 2.16.840.1.449775.3.579.2. 593 2000 Unknown [id number] 2.16.840.1.987345.3.579.2. 1259 2000 Unknown [id number] 2.16.840.1.241502.3.579.2. 1259 2000 Unknown [id number] 2.16.840.1.463137.3.579.2. 1259 2000 Unknown [id number] 2.16.840.1.346479.3.579.2. 1259 1983 Unknown [id number] 2.16.840.1.701963.3.579.2. 727 1959 Unknown [id number] 1959 Unknown [id number] 1959 Unknown [id number] Unknown Kat SMITH/BS [id number] Unknown [id number] [id number]. 531 Social History Date Type Detail Facility Start: 05-17-2023 Tobacco smoking status NHIS Never smoked tobacco [facility] Start: 05-17-2023 Tobacco use and exposure Smokeless tobacco non-user [facility] Start: 05-31-2023 End: 06-26-2024 Alcoholic beverage intake Ex-drinker (finding) [facility] Start: 05-17-2023 End: 05-31-2023 History [...] on file [facility] Work Phone: Start: 06-17-2024 Sex Female (finding) [facility] Start: 2000 Sex Assigned At Female [facility] History of Present illness Narrative [...] is normal post-procedure documented in this encounter [facility] Radiology Diagnostic study note 06-16-2024 Note Date & Type Note Facility 06-16-2024 Radiology Diagnostic study note [facility] [place] [address] Ultrasound Report Signed Patient: Jayna Miranda MR#: [id number] : 2000 Acct:[id number] Age/Sex: 23 / F ADM Date: 5 Loc: [facility] Room: Type: [facility] Attending Dr: Kaylah Yang MD Ordering Provider: Kaylah Yang MD Date of Service: 06/16/24 US/US breast LT limited: N64.4 Copies to: Kaylah Yang MD~ CLINICAL DATA: Left breast pain LIMITED [...] Perkins Jr., D.O.06/16/2024 2:14 PM Dictation Location: [facility] Tech: Alexa Ortiz Transcribed By: TERESO 06/16/24 1414 Dictated By: Zane Perkins Jr, DO 06/16/24 1412 Signed By: 06/16/24 1442 [facility] History of Present illness Narrative 11-20-2023 Karen Raman, [employer]SHING M[employer]SILE CREWMEMBER-DEGREE CLERK - 11/20/2023 1:10 PM EDT Note Date [...] limited to risks of scarring, darker or production intern pigmentary changes, recurrence, incomplete removal and infection. [...] month for wart documented in this encounter [facility] Evaluation note Note Date & Type Note Facility Evaluation note Diagnosis Acne vulgaris Other acne Common wart Other specified viral warts Pain Generalized pain documented in this encounter [facility] Evaluation note Note Date & Type Note Facility Evaluation note No assessment information [facility] Work Phone: Evaluation note Note Date [...] DATE CREATED AUTHOR AUTHOR'S ORGANIZ ATION 08/13/2022 [facility] DATE CREATED AUTHOR AUTHOR'S ORGANIZ ATION 06/21/2024 [facility] DATE CREATED AUTHOR AUTHOR'S ORGANIZ ATION 06/28/2024 [facility] [employer] Care Teams (unrecognized sec tion and content) [employer] M[employer] Installer Helper Relationship Specialty Start Date End Date Kaylah Yang MD [address] [place] [address] PCP - General Family Medicine 05/17/23 [employer] Meter Installer Helper Relationship Specialty Start Date End Date Kaylah Yang MD [address] [place] [address] PCP - General Family Medicine 05/17/23 Team [...] BE BASED ON THE PRIMARY CLINICAL RECORDS. [facility] provides no warranty or guarantee of the accuracy or completeness of information in this document.
[2024-09-26 08:20] LABS: Hematocrit 41.2 % (36.0-48.0); Hemoglobin 14.0 g/dL (12.0-16.0); Immature Granulocytes Abs Auto 0.02 10^3/uL (0.00-0.03); Immature Granulocytes Pct Auto 0.2 % (0.0-0.5); Lymphocytes Absolute Auto 2.5 10^3/uL (1.2-3.8); Mean Corpuscular HGB Conc 34.0 g/dL (29.9-35.2); Mean Corpuscular Hemoglobin 31.3 pg (26.7-34.0); Mean Corpuscular Volume 92.2 fL (81.0-99.0); Platelet Count 355 10^3/uL (150-450); Red Blood Count 4.47 10^6/uL (4.20-5.40); White Blood Count 8.5 10^3/uL (4.0-11.0)
[2024-09-26 11:43] LABS: Iron 120.0 ug/dL (50.0-170.0)
[2024-09-26 11:52] LABS: Alanine Aminotransferase 28 U/L (14-59); Albumin Globulin Ratio 1.1; Albumin Level 3.9 g/dL (3.4-5.0); Alkaline Phosphatase 69 U/L (46-116); Anion Gap 11.4; Aspartate Amino Transferase 17 U/L (15-37); Blood Urea Nitrogen 12.0 mg/dL (7.0-18.0); Calcium 9.1 mg/dL (8.5-10.1); Carbon Dioxide 26.4 mmol/L (21.0-32.0); Chloride 104 mmol/L (98-107); Cholesterol 160 mg/dL (<=200); Estimated GFR (African America >60 (>=60 mL/min/1.73m^2); Estimated GFR (Non-African Ame >60 (>=60 mL/min/1.73m^2); Free T3 2.99 pg/mL (2.18-3.98); Globulin 3.7 g/dL; Glucose 97 mg/dL (74-106); HDL Cholesterol 61 mg/dL (40-60); Potassium 3.8 mmol/L (3.5-5.1); Sodium 138 mmol/L (136-145); Thyroid Stimulating Hormone 3.512 uIU/mL (0.358-3.740); Total Protein 7.6 g/dL (6.4-8.2); Triglycerides 40 mg/dL (<=150); VLDL CHOLESTEROL 8.0 mg/dL
== END 2024-09-26 07:40 | disposition home or self-care (01) ==
LOC: LAB 07:45
PROVIDERS: PCP Family Medicine; Visit Provider Family Medicine
DX: Z00.00 Encounter for general adult medical examination without abnormal findings (principal); R73.09 Other abnormal glucose; R53.83 Other fatigue
CPT/HCPCS: 36415; 80053; 80061; 83036; 83525; 83540; 84436; 84443; 84481; 85025